=== PATIENT | female | born 1930 | race Caucasian/White ===

== ENCOUNTER 2016-08-18 16:22 | Emergency (ER) | payer OTHER ==
[2016-08-18 16:34] VITALS: TEMP 98.4
--- NOTE | 2016-08-18 17:19 | EDPHY ---
H & P Smoking Status: Never smoked Time Seen by Provider: 08/18/16 17:07 HPI/ROS: CHIEF COMPLAINT: Right wrist swelling and redness HISTORY OF PRESENT ILLNESS: 86-year-old female presents to the emergency department by private vehicle with concerns about swelling and redness to her right wrist. She denies any known trauma or injury. She states that about 1 week ago she noted some swelling and some redness in her right wrist and has since progressed proximally. She has no pain associated with this. She has no numbness or tingling. She denies pain in her elbow or shoulder. Denies fevers or chills. Denies chest pain or difficulty breathing. Denies rash elsewhere. The patient did have surgery on her right wrist when she was a child. REVIEW OF SYSTEMS: Constitutional: No fever, no chills. Eyes: No double or blurry vision. ENT: No sore throat. Respiratory: No cough, no shortness of breath. Cardiac: No chest pain. Gastrointestinal: No abdominal pain, vomiting or diarrhea. Genitourinary: No dysuria. Musculoskeletal: No neck or back pain. Skin: No rashes. Neurological: No headache. (Adrienne Headley) Past Medical/Surgical History: Hypothyroidism (Kayode,Adrienne M) Social History: and lives in [place] (Adrienne Headley) Physical Exam: General Appearance: Alert, no distress. Afebrile. Eyes: Pupils equal and round. Extraocular motions are all intact. ENT: Mouth: Mucous membranes moist. Respiratory: No wheezing, rhonchi, or rales, lungs are clear to auscultation. Cardiovascular: Regular rate and rhythm. Gastrointestinal: Abdomen is soft and nontender, no masses, no rebound or guarding, bowel sounds normal. Neurological: Alert and oriented x 3, cranial nerves II through XII grossly intact Skin: Redness noted to the medial aspect of the right wrist and forearm. Slightly warm to palpate. Nontender to palpate. Full range of motion of her right wrist. She has a well healed incision noted to the right wrist overlying distal radius on the volar side. She has full range of motion of her right upper extremity. No signs of septic joint. Warm and dry, no rashes. Musculoskeletal: Nontender to palpate along the cervical, thoracic or lumbar spine. Neck is supple. Extremities: Full range of motion and no peripheral edema. Psychiatric: Patient is oriented X 3, there is no agitation. (Adrienne Headley) Constitutional: Initial Vital Signs Temperature (C) 36.9 C 08/18/16 16:32 Heart Rate 83 08/18/16 16:32 Respiratory Rate 17 08/18/16 16:32 Blood Pressure 133/95 H 08/18/16 16:32 O2 Sat (%) 96 08/18/16 16:32 O2 Delivery Mode Room Air Allergies/Adverse Reactions: No Known Allergies Allergy (Verified 08/18/16 16:32) Home Medications: Medication Instructions Recorded Ascorbic Acid [Vitamin C 500 mg 500 mg PO DAILY 08/14/14 (*)] Aspirin [Aspirin 81mg (*)] 81 mg PO TUFR 08/14/14 Cholecalciferol Vit D3 [Vitamin D3 1,000 units PO DAILY 08/14/14 (*)] Levothyroxine [Synthroid 50 mcg 50 mcg PO DAILY06 08/14/14 (*)] Cephalexin [Keflex] 500 mg PO TID #21 cap 08/18/16 Medical Decision Making ED Course/Re-evaluation: 86-year-old female presents with redness to right forearm. She denies any known trauma or injury. It does not appear there is a rash. I spoke with Dr. Maite Gottlieb, secondary supervising physician, who also evaluated the patient and recommended starting the patient on Keflex. I doubt this patient has a DVT. She has no reported trauma. She has full range of motion of her right wrist without pain or difficulty. No evidence of septic joint. Given the history of redness that is spreading proximally, she will be started on antibiotics. I encouraged to follow up with her primary care provider on Sunday to recheck. The patient was comfortable with this plan. (Adrienne Headley) Differential Diagnosis: Including but not limited to cellulitis, thrombosis, superficial thrombophlebitis, skin irritation, septic arthritis (Adrienne Headley) Other Provider: I evaluated and participated in the management of the patient. My co-signature indicates that I have reviewed this chart and I agree with the findings and plan of care as documented. My personal H&P findings include: 86 year old female with erythema on right volar wrist and forearm. No warmth, swelling, or deformity. Patient denies trauma. Minimally uncomfortable to patient. Almost appears as ecchymosis but patient denies trauma and area has increased in size since yesterday. Will start Keflex and close follow up. (Maite Gottlieb) Departure - Departure Disposition: Home, Routine, Self-Care Clinical Impression: Cellulitis Qualifiers: Site of cellulitis: extremity Site of cellulitis of extremity: upper extremity Laterality: right Qualified Code(s): L03.113 - Cellulitis of right upper limb Condition: Good Instructions: Cellulitis (ED) Additional Instructions: Keflex 500 mg 3 times daily for 1 week to prevent infection. If your redness goes beyond the blue line that was marked on your skin, you should seek medical attention. Follow up with Erika Arzate or the on-call orthopedic hand surgeon , Dr. Roberto Kelly on Sunday if you do not notice improvement. Return sooner if he develops fever, associated pain, or if you feel worse in any way. Referrals: Erika Arzate MD [Primary Care Provider] - As per Instructions Prescriptions: Cephalexin [Keflex] 500 mg PO TID #21 cap
[2016-08-18 17:48] VITALS: BP 116/89; PULSE 69; RESP 18; O2SAT 94
== END 2016-08-18 17:47 | disposition home or self-care (01) ==
DX: L03.113 Cellulitis of right upper limb (principal); Z79.82 Long term (current) use of aspirin

== ENCOUNTER 2016-08-21 18:00 | Emergency (ER) | payer OTHER ==
--- NOTE | 2016-08-21 18:13 | EDPHY ---
H & P HPI/ROS: HPI CHIEF COMPLAINT: Head trauma, fall HISTORY OF PRESENT ILLNESS: This is a very pleasant 86-year-old female, she presents emergency room after she had a mechanical trip and fall. She states that she was walking on the sidewalk for her normal nightly walk she was using her typical walking pulse to ambulate she tells me that her feet got out in front of her too fast she began to walk too fast lost her balance fell forward with head strike. No LOC. She denies pain to her extremities specifically denies wrist pain hand pain back pain neck pain chest pain or shortness of breath. Denies palpitations. Denies syncope. Denies LOC. She did have head strike against the pavement of her forehead. there is bilateral forehead hematoma. Denies any other areas of injury. She tells me his tetanus shot is not up-to-date. Past Medical History:Thyroid disease Past Surgical History: no recent surgical history Social History: Lives independently, denies drugs alcohol tobacco products Family History: Noncontributory ROS REVIEW OF SYSTEMS: A comprehensive 10 point review of systems is otherwise negative aside from elements mentioned in the history of present illness. Exam Constitutional appears well nontoxic, triage nursing summary reviewed, vital signs reviewed, awake/alert. Eyes normal conjunctivae and sclera, EOMI, PERRLA. HENT head/neck: Bilateral forehead hematoma, abrasions present, no significant laceration, no neck pain no midline neck pain, no step-offs, no crepitus, moist mucus membranes, no epistaxis, neck supple/ no meningismus, no raccoon eyes. Respiratory clear to auscultation bilaterally, normal breath sounds, no respiratory distress, no wheezing. Cardiovascular rate normal, regular rhythm, no murmur, no edema, distal pulses normal. Gastrointestinal soft, non-tender, no rebound, no guarding, normal bowel sounds, no distension, no pulsatile mass. Genitourinary no CVA tenderness. Musculoskeletal no midline vertebral tenderness, full range of motion, no calf swelling, no tenderness of extremities, no meningismus, good pulses, neurovascularly intact. Skin pink, warm, & dry, no rash, skin atraumatic. Neurologic awake, alert and oriented x 3, AAOx3, moves all 4 extremities equally, motor intact, sensory intact, CN II-XII intact, normal cerebellar, normal vision, normal speech. Psychiatric normal mood/affect. Heme/Lymph/Immune no lymphadenopathy. Differential Diagnosis: includes but is not limited to in a particular order mechanical trip and fall, forehead hematoma, abrasions, need for tetanus shot Medical Decision Making: will update patient's tetanus. We will perform CT scan head without contrast for trauma. Re-evaluation: CT scan of the head without IV contrast for trauma. The results of the study are negative for acute traumatic injury. The study was read by Dr. Perla. I viewed the images myself on the PACS system. 191: Patient CT scan head shows negative for anything acute for trauma. She ambulated well throughout the emergency room. She feels well he is agreeable for discharge. I have answered all her questions. Her tetanus shot has been updated. Wounds clean. She does understand strict return precautions return emergency room she develops any worsening symptoms includes vomiting or severe headache. Source: Patient, EMS - Personal History Tetanus Vaccine Date: unsure - Medical/Surgical History Hx Asthma: No Hx Chronic Respiratory Disease: No Hx Diabetes: No Hx Cardiac Disease: No Hx Renal Disease: No Hx Cirrhosis: No Hx Alcoholism: No Hx HIV/AIDS: No Hx Splenectomy or Spleen Trauma: No Other PMH: thyroid - Social History Smoking Status: Never smoked Constitutional: Initial Vital Signs Temperature (C) 36.6 C 08/21/16 18:00 Heart Rate 91 08/21/16 18:00 Respiratory Rate 16 08/21/16 18:00 Blood Pressure 132/71 H 08/21/16 18:00 O2 Sat (%) 92 08/21/16 18:00 O2 Delivery Mode Room Air Allergies/Adverse Reactions: No Known Allergies Allergy (Verified 08/18/16 16:32) Home Medications: Medication Instructions Recorded Ascorbic Acid [Vitamin C 500 mg 500 mg PO DAILY 08/14/14 (*)] Aspirin [Aspirin 81mg (*)] 81 mg PO TUFR 08/14/14 Cholecalciferol Vit D3 [Vitamin D3 1,000 units PO DAILY 08/14/14 (*)] Levothyroxine [Synthroid 50 mcg 50 mcg PO DAILY06 08/14/14 (*)] Cephalexin [Keflex] 500 mg PO TID #21 cap 08/18/16 Departure - Departure Disposition: Home, Routine, Self-Care Clinical Impression: Head injury Qualifiers: Encounter type: initial encounter Qualified Code(s): S09.90XA - Unspecified injury of head, initial encounter Traumatic hematoma of forehead Qualifiers: Encounter type: initial encounter Qualified Code(s): S00.83XA - Contusion of other part of head, initial encounter Condition: Good Instructions: Concussion (ED), Head Injury (ED), Contusion in Adults (ED), Hematoma (ED), Tetanus (ED) Additional Instructions: 1. Please return emergency room if he develops any worsening symptoms questions or concerns includes the severe headache, vomiting or you do not feel well. Referrals: Patient,NotPresent [Unknown] - As per Instructions
[2016-08-21 18:15] VITALS: RESP 16; TEMP 97.9
[2016-08-21] MEDS ORDERED: TDAP ADULT 0.5 ML INJ (BOOSTRIX) IM ONE (18:20)
[2016-08-21 19:34] VITALS: BP 125/74; PULSE 71; O2SAT 94
== END 2016-08-21 19:35 | disposition home or self-care (01) ==
LOC: EDUNIT#
DX: S00.83XA Contusion of other part of head, initial encounter (principal); Z23 Encounter for immunization; Z79.82 Long term (current) use of aspirin; W01.0XXA Fall on same level from slipping, tripping and stumbling without subsequent striking against object, initial encounter; Y92.480 Sidewalk as the place of occurrence of the external cause; Y99.8 Other external cause status; Y93.01 Activity, walking, marching and hiking

== ENCOUNTER → 2016-11-15 | Outpatient (CLI) | payer OTHER | LOC: BMCIMAGING 08:45 | PROVIDERS: ATTEND Psychiatry & Neurology Neurology | DX: Z13.9 Encounter for screening, unspecified (principal); R09.89 Other specified symptoms and signs involving the circulatory and respiratory systems ==

== ENCOUNTER → 2016-11-18 | Outpatient (CLI) | payer OTHER ==
[~2016-11-18] MED LIST: GADOBUTROL 10 ML VIAL IVP ONE
[2016-11-18 13:56] LABS: CREATININE 0.7 mg/dL (0.6-1.0); GLOMERULAR FILTRATION RATE > 60
== END ==
LOC: FIMAGING 12:48
PROVIDERS: ATTEND Psychiatry & Neurology Neurology
DX: R26.81 Unsteadiness on feet (principal); R41.3 Other amnesia; Z85.3 Personal history of malignant neoplasm of breast; M50.30 Other cervical disc degeneration, unspecified cervical region; M48.02 Spinal stenosis, cervical region; R93.0 Abnormal findings on diagnostic imaging of skull and head, not elsewhere classified
CPT/HCPCS: 70553; 72141; A9585

== ENCOUNTER 2017-01-12 17:50 | Inpatient (IN) | payer OTHER ==
--- NOTE | 2017-01-12 18:54 | CPEKG ---
Heart Rate: 96 RR Interval: 625 P-R Interval: 164 QRSD Interval: 76 QT Interval: 360 QTC Interval: 455 P [place]: 30 QRS [place]: -18 T Wave [place]: 19 EKG Severity - ABNORMAL ECG - EKG Impression: SINUS RHYTHM EKG Impression: PROBABLE LEFT ATRIAL ABNORMALITY EKG Impression: BORDERLINE LEFT AXIS DEVIATION EKG Impression: ABNRM R PROG, CONSIDER ASMI OR LEAD PLACEMENT Electronically Signed By: Maite Gottlieb 12-Jan-2017 21:35:38
[2017-01-12 19:00] LABS: % IMMATURE GRANULYOCYTES 0.5 % (0.0-1.1); ABSOLUTE IMMATURE GRANULOCYTES 0.03 10^3/uL (0.00-0.10); ADD DIFF? NO; ADD MORPH? NO; ADD SCAN? NO; ATYPICAL LYMPHOCYTE FLAG 10 (0-99); FRAGMENT RBC FLAG 0 (0-99); HEMATOCRIT 35.6 % (38.0-47.0); HEMOGLOBIN 12.3 g/dL (12.6-16.3); LEFT SHIFT FLG 0 (0-99); LIPEMIA HEMOLYSIS FLAG 90 (0-99); MEAN CELL HEMOGLOBIN 33.4 pg (27.9-34.1); MEAN CELL HEMOGLOBIN CONCENTR. 34.6 g/dL (32.4-36.7); MEAN CELL VOLUME 96.7 fL (81.5-99.8); MEAN PLATELET VOLUME 9.1 fL (8.7-11.7); PLATELET CLUMPS FLAG 0 (0-99); PLATELET COUNT 251 10^3/uL (150-400); RED BLOOD CELL COUNT 3.68 10^6/uL (4.18-5.33); RED CELL DISTRIBUTION WIDTH 13.5 % (11.5-15.2)
[2017-01-12 19:12] LABS: ANION GAP 10 mEq/L (8-16); CALCIUM 9.9 mg/dL (8.5-10.4); CARBON DIOXIDE 23 mEq/l (22-31); CHLORIDE 98 mEq/L (97-110); CREATININE 0.8 mg/dL (0.6-1.0); GLOMERULAR FILTRATION RATE > 60; GLUCOSE 107 mg/dL (70-100); SODIUM 131 mEq/L (134-144)
[2017-01-12 19:21] LABS: TROPONIN I 0.017 ng/mL (0.000-0.034)
[2017-01-12 19:53] LABS: COLOR YELLOW; LEUKOCYTE ESTERASE,URINE NEGATIVE (NEGATIVE); NITRITE,URINE NEGATIVE (NEGATIVE)
[2017-01-12 19:54] LABS: MUCUS TRACE /lpf (NONE-1+)
[2017-01-12 19:57] LABS: WBC,URINE NONE SEEN /hpf (0-3)
--- NOTE | 2017-01-12 20:47 | EDPHY ---
H & P Stated Complaint: mechanical fall, denies LOC/Pain/Trauma, c/o bilateral knee wks today Time Seen by Provider: 01/12/17 17:50 HPI/ROS: CHIEF COMPLAINT: Knees gave out HISTORY OF PRESENT ILLNESS: This is an 86-year-old female presents emergency department after a fall. Per the paramedics and the patient she was walking approximately 2-3 blocks from her home. Paramedics reported mechanical fall, however the patient states that her knee simply gave out and she fell. She denies chest pain, palpitations, lightheadedness, dizziness, shortness of breath , syncope, or head trauma. She was unable to get up stating that her knees felt too weak. Patient does report that her knees have felt weak today. This is the 1st time she has fallen. Patient denies fevers or chills, vomiting, diarrhea, urinary complaints, headache, lightheadedness. REVIEW OF SYSTEMS: Aside from elements discussed in the HPI, a comprehensive 10-point review of systems was reviewed and is negative. Of note, the patient has a Zoll monitor in place on her chest. She tells me that was placed at the request of her primary care physician, Dr. Arzate, however she cannot tell me why. PAST MEDICAL HISTORY: Hypothyroidism SOCIAL HISTORY: Patient lives alone at [facility]. She has a daughter who is a physician in [place]. VITAL SIGNS Reviewed by me. GENERAL: Pleasant, bright, conversant elderly female. No distress. Denies pain. States her knees feel weak. HEENT: Atraumatic. Eyes: No icterus, no injection. Mouth: moist mucous membranes. No erythema or lesions. Neck: supple with no adenopathy. No tenderness to palpation. LUNGS: Clear to auscultation bilaterally, no wheezes, rhonchi or rales. CARDIAC: Regular rate and rhythm, no rubs, murmurs or gallops. ABDOMEN: Soft, nontender, nondistended, bowel sounds normal. BACK: No CVA tenderness. EXTREMITIES: faint abrasion on the right knee. No bony tenderness over the knees. No effusions. Full range of motion at the knees. Normal extensor mechanism. NEURO: Alert and oriented, grossly nonfocal. SKIN: Warm and dry, no rash. PSYCHIATRIC: Normal mentation, no agitation. - Personal History Current Tetanus Diphtheria and Acellular Pertussis (TDAP): Yes Tetanus Vaccine Date: unsure - Medical/Surgical History Hx Asthma: No Hx Chronic Respiratory Disease: No Hx Diabetes: No Hx Cardiac Disease: No Hx Renal Disease: No Hx Cirrhosis: No Hx Alcoholism: No Hx HIV/AIDS: No Hx Splenectomy or Spleen Trauma: No Other PMH: thyroid - Social History Smoking Status: Never smoked Constitutional: Initial Vital Signs Temperature (C) 36.8 C 01/12/17 17:58 Heart Rate 104 H 01/12/17 17:58 Respiratory Rate 16 01/12/17 17:58 Blood Pressure 150/88 H 01/12/17 17:58 O2 Sat (%) 93 01/12/17 17:58 O2 Delivery Mode Room Air Allergies/Adverse Reactions: No Known Allergies Allergy (Verified 01/12/17 21:21) Home Medications: Medication Instructions Recorded Levothyroxine [Synthroid 50 mcg 50 mcg PO DAILY06 08/14/14 (*)] Herbals/Supplements -Info Only 1 ea PO DAILY 01/12/17 Medical Decision Making - Diagnostics EKG Interpretation: 12-LEAD EKG: Please see the full report in [facility]. My interpretation: Sinus rhythm Imaging Results: Imaging Impressions Knee X-Ray 01/12/17 18:23 Impression: Normal bilateral knee series. Knee X-Ray 01/12/17 18:23 Impression: Normal bilateral knee series. ED Course/Re-evaluation: 86-year-old female presents after a fall. Patient tells me that her knees just gave out on her. Evaluation in the emergency department includes CBC, chemistries, troponin which were all largely unremarkable. Urinalysis demonstrates no signs of infection. I did get the patient up and washed her ambulate. She can move very slowly and very cautiously using her to walking/hiking sticks. She states this is normally not away she walks. She feels very anxious about walking and feels that her knees are going to give out. Patient's course discussed with Dr. Giovanna Hernandez. She will be admitted to the hospital for further observation. Patient may need physical therapy evaluation. It is also unclear to me why she has a Zoll monitor and the possibility of a cardiac event could be raised. Differential Diagnosis: Differential diagnoses for the patient's symptom complex was considered including but not limited to mechanical fall, syncope, arrhythmia, electrolyte abnormalities, arthritis, deconditioning, occult infection, urinary tract infection. - Data Points Laboratory Results: Laboratory Results 01/12/17 18:45 01/12/17 18:45 01/12/17 01/12/17 01/12/17 19:17 18:45 18:45 WBC 6.38 10^3/uL 10^3/uL (3.80-9.50) RBC 3.68 10^6/uL L 10^6/uL (4.18-5.33) Hgb 12.3 g/dL L g/dL (12.6-16.3) Hct 35.6 % L % (38.0-47.0) MCV 96.7 fL fL (81.5-99.8) MCH 33.4 pg pg (27.9-34.1) MCHC 34.6 g/dL g/dL (32.4-36.7) RDW 13.5 % % (11.5-15.2) Plt Count 251 10^3/uL 10^3/uL (150-400) MPV 9.1 fL fL (8.7-11.7) Neut % (Auto) 82.2 % H % (39.3-74.2) Lymph % (Auto) 10.0 % L % (15.0-45.0) [place] % (Auto) 6.0 % % (4.5-13.0) Eos % (Auto) 0.5 % L % (0.6-7.6) Baso % (Auto) 0.8 % % (0.3-1.7) Nucleat RBC Rel Count 0.0 % % (0.0-0.2) Absolute Neuts (auto) 5.25 10^3/uL 10^3/uL (1.70-6.50) Absolute Lymphs (auto) 0.64 10^3/uL L 10^3/uL (1.00-3.00) Absolute Monos (auto) 0.38 10^3/uL 10^3/uL (0.30-0.80) Absolute Eos (auto) 0.03 10^3/uL 10^3/uL (0.03-0.40) Absolute Basos (auto) 0.05 10^3/uL 10^3/uL (0.02-0.10) Absolute Nucleated RBC 0.00 10^3/uL 10^3/uL (0-0.01) Immature Gran % 0.5 % % (0.0-1.1) Immature Gran # 0.03 10^3/uL 10^3/uL (0.00-0.10) Sodium 131 mEq/L L mEq/L (134-144) Potassium 4.0 mEq/L mEq/L (3.5-5.2) Chloride 98 mEq/L mEq/L (97-110) Carbon Dioxide 23 mEq/l mEq/l (22-31) Anion Gap 10 mEq/L mEq/L (8-16) BUN 24 mg/dL H mg/dL (7-23) Creatinine 0.8 mg/dL mg/dL (0.6-1.0) Estimated GFR > 60 Glucose 107 mg/dL H mg/dL (70-100) Calcium 9.9 mg/dL mg/dL (8.5-10.4) Troponin I 0.017 ng/mL ng/mL (0.000-0.034) Urine Color YELLOW Urine Appearance CLEAR Urine pH 6.0 (5.0-7.5) Ur Specific [place] 1.004 (1.002-1.030) Urine Protein NEGATIVE (NEGATIVE) Urine Ketones NEGATIVE (NEGATIVE) Urine Blood NEGATIVE (NEGATIVE) Urine Nitrate NEGATIVE (NEGATIVE) Urine Bilirubin NEGATIVE (NEGATIVE) Urine Urobilinogen NEGATIVE EU EU (0.2-1.0) Ur Leukocyte Esterase NEGATIVE (NEGATIVE) Urine RBC 1-3 /hpf /hpf (0-3) Urine WBC NONE SEEN /hpf /hpf (0-3) Ur Epithelial Cells NONE SEEN /lpf /lpf (NONE-1+) Urine Mucus TRACE /lpf /lpf (NONE-1+) Urine Glucose NEGATIVE (NEGATIVE) Medications Given: Sodium Chloride (Ns) 500 mls @ 250 mls/hr IV EDNOW ONE PRN Reason: Protocol Stop: 01/12/17 23:07 Last Admin: 01/12/17 21:13 Dose: 500 mls Discontinued Medications Acetaminophen (Tylenol) 650 mg PO EDNOW ONE Stop: 01/12/17 20:53 Last Admin: 01/12/17 21:07 Dose: Not Given Departure - Departure Disposition: [facility] Clinical Impression: Unable to ambulate Condition: Fair
[2017-01-12] MEDS ORDERED: ACETAMINOPHEN 325 MG TAB PO ONE (20:52)
[2017-01-12] MEDS ORDERED: NS 500 ML IV ONE (21:08)
[2017-01-12] MEDS ORDERED: ACETAMINOPHEN 325 MG TAB PO PRN (22:21)
[2017-01-12] MEDS ORDERED: ONDANSETRON 4 MG/2 ML VIAL IVP PRN (22:21)
[2017-01-12] MEDS ORDERED: ONDANSETRON DISINTEGRATING 4 MG TAB PO PRN (22:21)
--- NOTE | 2017-01-12 22:27 | PDGENHP ---
History and Physical - Chief Complaint Fall - History of Present Illness 86 yo F with hypothyroid presents after fall. She states she was going for a walk today when her knees gave out. She denies loss of consciousness, chest pain , SOB, etc. She could not get up on her own but people from her facility were able to help her. She arrived to ED via EMS as a result. She lives at an independent living facility where it does not seem she gets much help. Although the patient is fairly oriented and has an appropriate fund of knowledge, it seems she may have at least mild dementia. Reviewing her records I see recent brain and C-spine MRI's, which she does not recall why these were done. Additionally, she has a Zio patch (heart monitor) on today; she also does not recall why this was placed. Currently she is asymptomatic. History Information - Allergies/Home Medication List Allergies/Adverse Reactions: No Known Allergies Allergy (Verified 01/12/17 21:21) Home Medications: Levothyroxine [Synthroid 50 mcg (*)] 50 mcg PO DAILY06 08/14/14 [Last Taken ] Herbals/Supplements -Info Only 1 ea PO DAILY 01/12/17 [Last Taken 01/12/17] I have personally reviewed and updated: family history, medical history - Past Medical History Additional medical history: Hypothyroid - Family History Additional family history: Asked, does not recall - Social History Smoking Status: Never smoked Review of Systems Review of Systems: ROS: 10pt was reviewed & negative except for what was stated in HPI & below Physical Exam Physical Exam: Temp Pulse Resp BP Pulse Ox 36.8 C 77 16 151/86 H 96 01/12/17 17:58 01/12/17 21:45 01/12/17 21:45 01/12/17 21:45 01/12/17 21:45 Constitutional: no apparent distress, appears nourished Eyes: PERRL, EOMI Ears, Nose, Mouth, Throat: moist mucous membranes, no oral mucosal ulcers Cardiovascular: regular rate and rhythym, no murmur, rub, or gallop Respiratory: no respiratory distress, clear to auscultation Gastrointestinal: normoactive bowel sounds, soft, non-tender abdomen Skin: warm, normal color Musculoskeletal: full muscle strength, no muscle tenderness Neurologic: AAOx3, CN II-XII Intact Psychiatric: interacting appropriately, not anxious Lab Data & Imaging Review 01/12/17 18:45 01/12/17 18:45 WBC 6.38 10^3/uL (3.80-9.50) 01/12/17 18:45 RBC 3.68 10^6/uL (4.18-5.33) L 01/12/17 18:45 Hgb 12.3 g/dL (12.6-16.3) L 01/12/17 18:45 Hct 35.6 % (38.0-47.0) L 01/12/17 18:45 MCV 96.7 fL (81.5-99.8) 01/12/17 18:45 MCH 33.4 pg (27.9-34.1) 01/12/17 18:45 MCHC 34.6 g/dL (32.4-36.7) 01/12/17 18:45 RDW 13.5 % (11.5-15.2) 01/12/17 18:45 Plt Count 251 10^3/uL (150-400) 01/12/17 18:45 MPV 9.1 fL (8.7-11.7) 01/12/17 18:45 Neut % (Auto) 82.2 % (39.3-74.2) H 01/12/17 18:45 Lymph % (Auto) 10.0 % (15.0-45.0) L 01/12/17 18:45 [place] % (Auto) 6.0 % (4.5-13.0) 01/12/17 18:45 Eos % (Auto) 0.5 % (0.6-7.6) L 01/12/17 18:45 Baso % (Auto) 0.8 % (0.3-1.7) 01/12/17 18:45 Nucleat RBC Rel Count 0.0 % (0.0-0.2) 01/12/17 18:45 Absolute Neuts (auto) 5.25 10^3/uL (1.70-6.50) 01/12/17 18:45 Absolute Lymphs (auto) 0.64 10^3/uL (1.00-3.00) L 01/12/17 18:45 Absolute Monos (auto) 0.38 10^3/uL (0.30-0.80) 01/12/17 18:45 Absolute Eos (auto) 0.03 10^3/uL (0.03-0.40) 01/12/17 18:45 Absolute Basos (auto) 0.05 10^3/uL (0.02-0.10) 01/12/17 18:45 Absolute Nucleated RBC 0.00 10^3/uL (0-0.01) 01/12/17 18:45 Immature Gran % 0.5 % (0.0-1.1) 01/12/17 18:45 Immature Gran # 0.03 10^3/uL (0.00-0.10) 01/12/17 18:45 Sodium 131 mEq/L (134-144) L 01/12/17 18:45 Potassium 4.0 mEq/L (3.5-5.2) 01/12/17 18:45 Chloride 98 mEq/L (97-110) 01/12/17 18:45 Carbon Dioxide 23 mEq/l (22-31) 01/12/17 18:45 Anion Gap 10 mEq/L (8-16) 01/12/17 18:45 BUN 24 mg/dL (7-23) H 01/12/17 18:45 Creatinine 0.8 mg/dL (0.6-1.0) 01/12/17 18:45 Estimated GFR > 60 01/12/17 18:45 Glucose 107 mg/dL (70-100) H 01/12/17 18:45 Calcium 9.9 mg/dL (8.5-10.4) 01/12/17 18:45 Troponin I 0.017 ng/mL (0.000-0.034) 01/12/17 18:45 Urine Color YELLOW 01/12/17 19:17 Urine Appearance CLEAR 01/12/17 19:17 Urine pH 6.0 (5.0-7.5) 01/12/17 19:17 Ur Specific [place] 1.004 (1.002-1.030) 01/12/17 19:17 Urine Protein NEGATIVE (NEGATIVE) 01/12/17 19:17 Urine Ketones NEGATIVE (NEGATIVE) 01/12/17 19:17 Urine Blood NEGATIVE (NEGATIVE) 01/12/17 19:17 Urine Nitrate NEGATIVE (NEGATIVE) 01/12/17 19:17 Urine Bilirubin NEGATIVE (NEGATIVE) 01/12/17 19:17 Urine Urobilinogen NEGATIVE EU (0.2-1.0) 01/12/17 19:17 Ur Leukocyte Esterase NEGATIVE (NEGATIVE) 01/12/17 19:17 Urine RBC 1-3 /hpf (0-3) 01/12/17 19:17 Urine WBC NONE SEEN /hpf (0-3) 01/12/17 19:17 Ur Epithelial Cells NONE SEEN /lpf (NONE-1+) 01/12/17 19:17 Urine Mucus TRACE /lpf (NONE-1+) 01/12/17 19:17 Urine Glucose NEGATIVE (NEGATIVE) 01/12/17 19:17 Imaging Review: B/L Knee Xrays WNL. Visualized and Interpreted EKG results: Yes EKG Interpretation: Positive for: normal sinsus rhythm Assessment & Plan Assessment: 86 yo F presents after fall likely as a result of sub-acute functional decline. Plan: 1. Fall - No evidence of LOC, seizures, ACS, etc. It seems fall was minor and more due to weakness and deconditioning than acute medical condition. I suspect patient's history is not entirely reliable due to mild/moderate dementia, and she is likely doing worse at home than she lets on. Neurologic exam WNL on admission and patient asymptomatic. No significant trauma occurred from fall. 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 - Will monitor on telemetry overnight noting Zio patch in place for unclear reasons - Would obtain PCP records to obtain collateral and other recent work-up - TSH, B12, Vit D all WNL on November lab work - PT/OT/CM consults to assess function and assure correct placement on discharge , currently in independent living 2. Hyponatremia - Mild, will recheck BMP in AM after 500 mL NS 3. Hypothyroid - On LTX as outpatient, TSH WNL in November Diet - Regular Code - Full per discussion with patient Ppx - LMWH, low dose Dispo - Admit to observation status
[2017-01-13 05:20] LABS: ANION GAP 5 mEq/L (8-16); CARBON DIOXIDE 25 mEq/l (22-31); CHLORIDE 103 mEq/L (97-110); CREATININE 0.7 mg/dL (0.6-1.0); GLOMERULAR FILTRATION RATE > 60; GLUCOSE 85 mg/dL (70-100); POTASSIUM 3.6 mEq/L (3.5-5.2); SODIUM 133 mEq/L (134-144)
[2017-01-13 05:21] LABS: % IMMATURE GRANULYOCYTES 0.2 % (0.0-1.1); ABSOLUTE IMMATURE GRANULOCYTES 0.01 10^3/uL (0.00-0.10); ADD DIFF? NO; ADD MORPH? NO; ADD SCAN? NO; ATYPICAL LYMPHOCYTE FLAG 30 (0-99); FRAGMENT RBC FLAG 0 (0-99); HEMATOCRIT 30.7 % (38.0-47.0); HEMOGLOBIN 10.4 g/dL (12.6-16.3); LEFT SHIFT FLG 0 (0-99); LIPEMIA HEMOLYSIS FLAG 90 (0-99); MEAN CELL HEMOGLOBIN 33.1 pg (27.9-34.1); MEAN CELL HEMOGLOBIN CONCENTR. 33.9 g/dL (32.4-36.7); MEAN CELL VOLUME 97.8 fL (81.5-99.8); MEAN PLATELET VOLUME 9.5 fL (8.7-11.7); PLATELET CLUMPS FLAG 0 (0-99); PLATELET COUNT 219 10^3/uL (150-400); RED BLOOD CELL COUNT 3.14 10^6/uL (4.18-5.33); RED CELL DISTRIBUTION WIDTH 13.7 % (11.5-15.2)
[2017-01-13] MEDS: ENOXAPARIN 30 MG/0.3 ML SYR SC SCH (10:19)
--- NOTE | 2017-01-13 13:33 | HOSPPROG ---
Hospitalist Progress Note Assessment/Plan: 86 yo F PMH hypoT presents after fall likely as a result of sub-acute functional decline. This is my first day caring for pt. Knee Xrays reviewed. ECG personally interpreted reveals SR. #. Fall - No evidence of LOC, seizures, ACS, etc. minor fall and more due to weakness and deconditioning than acute medical condition. suspect patient's history is not entirely reliable due to mild/moderate dementia, and she is likely doing worse at home than she lets on. Neurologic exam WNL on admission and patient asymptomatic. No significant trauma occurred from fall. 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 Will monitor on telemetry overnight noting Zio patch in place for unclear reasons Would obtain PCP records to obtain collateral and other recent work-up TSH, B12, Vit D all WNL on November lab work PT/OT/CM consults to assess function and assure correct placement on discharge, currently in independent living #. Hyponatremia - Mild, will recheck BMP in AM after 500 mL NS #. Hypothyroid - On LT4 as outpatient, TSH WNL in November #. Diet - Regular #. Code - Full per discussion with patient #. Ppx - LMWH, low dose #. Dispo - unclear as pt is still undergoing evaluations will admit to inpt OT recommending SNF rehab Subjective: Denies knee pain, cp, lightheadedness. Objective: Vital Signs Temp Pulse Resp BP Pulse Ox 97.3 F 81 14 91/53 L 94 01/13/17 11:30 01/13/17 11:30 01/13/17 11:30 01/13/17 11:30 01/13/17 11:30 Laboratory Results 01/13/17 04:45 01/13/17 04:45 01/12/17 01/13/17 01/14/17 05:59 05:59 05:59 Intake Total 560 Output Total 200 200 Balance 360 -200 - Physical Exam Constitutional: no apparent distress, appears nourished Eyes: PERRL Ears, Nose, Mouth, Throat: moist mucous membranes Cardiovascular: regular rate and rhythym, no murmur, rub, or gallop Respiratory: no respiratory distress, no rales or rhonchi Gastrointestinal: normoactive bowel sounds Skin: warm, normal color Psychiatric: interacting appropriately, not anxious ICD10 Worksheet Patient Problems: Problems Problem Status Onset Hyponatremia Acute Cellulitis Acute Unable to ambulate Acute
--- NOTE | 2017-01-13 15:48 | ASMTCMCOM ---
CM Note CM Note Notes: Pt admitted after fall while walking. Pt lives alone at [facility]. No PT eval yet but OT is recommending HC vs SNF. expressed concern that pt has mild to moderate dementia and is probably doing worse at home than she lets on. C/M to follow for DC plan. Date Signed: 01/13/2017 03:48 PM Electronically Signed By:Breonna Rausch LCSW
[2017-01-14] MEDS ORDERED: LEVOTHYROXINE 50 MCG TAB PO SCH (06:00)
[2017-01-14 07:56] VITALS: TEMP 101.5
[2017-01-14] MEDS ORDERED: Herbals/Supplements -Info Only PO SCH (09:00)
[2017-01-14] MEDS: ENOXAPARIN 30 MG/0.3 ML SYR SC SCH (09:20)
--- NOTE | 2017-01-14 11:27 | HOSPPROG ---
Hospitalist Progress Note Assessment/Plan: 86 yo F PMH hypoT presents after fall likely as a result of sub-acute functional decline. #. Fall - No evidence of LOC, seizures, ACS, etc. minor fall and more due to weakness and deconditioning than acute medical condition. suspect patient's history is not entirely reliable due to mild/moderate dementia, and she is likely doing worse at home than she lets on. Neurologic exam WNL on admission and patient asymptomatic. No significant trauma occurred from fall. 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 D/C telemetry as it as been fairly unremarkable/ continue Zio patch TSH, B12, Vit D all WNL on November lab work PT/OT/CM consults to assess function and seeking placement for rehab #. Hyponatremia - Mild and improved #. Hypothyroid - On LT4 as outpatient, TSH WNL in November #. Diet - Regular #. Code - Full per discussion with patient #. Ppx - LMWH, low dose #. Dispo - await placement for SNF rehab Subjective: No complaints. Objective: Vital Signs Temp Pulse Resp BP Pulse Ox 101.5 F H 83 15 129/73 H 93 01/14/17 07:54 01/14/17 07:54 01/14/17 07:54 01/14/17 07:54 01/14/17 07:54 01/13/17 01/14/17 01/15/17 05:59 05:59 05:59 Intake Total 750 Output Total 400 500 Balance 350 -500 - Physical Exam Constitutional: no apparent distress, appears nourished Cardiovascular: regular rate and rhythym, systolic murmur Respiratory: no respiratory distress, no rales or rhonchi Gastrointestinal: normoactive bowel sounds, soft, non-tender abdomen Skin: warm, normal color ICD10 Worksheet Patient Problems: Problems Problem Status Onset Unable to ambulate Acute Cellulitis Acute Hyponatremia Acute
[2017-01-14 11:58] VITALS: BP 122/73; PULSE 79; RESP 18; O2SAT 94
--- NOTE | 2017-01-14 14:01 | PDIAF ---
- Diagnosis Code Status: Full Code - Medication Management Discharge Medications: Medications to Continue on Transfer Levothyroxine [Synthroid 50 mcg (*)] 50 mcg PO DAILY06 08/14/14 [Last Taken ] Herbals/Supplements -Info Only 1 ea PO DAILY 01/12/17 [Last Taken 01/12/17] Acetaminophen [Tylenol 325mg (*)] 650 mg PO Q4HRS PRN tab 01/14/17 [Last Taken Unknown] Discharge Medications: Refer to the Discharge Home Medication list for PRN reason. - Orders Services needed: Registered Nurse, Certified Machine Cutter, Physical Therapy, Occupational Therapy Diet Recommendation: no restrictions on diet - Follow Up Care Current Providers and Referrals: Erika Arzate MD [Primary Care Provider] - follow up in 1 week
--- NOTE | 2017-01-14 14:02 | ASMTCMCOM ---
CM Note CM Note Notes: Patient has been cleared for discharge. Contacted [facility] to see if [facility] could take her today under her [facility] membership. They do have a bed and can admit. Date Signed: 01/14/2017 02:01 PM Electronically Signed By:Sheryl Schmidt LCSW
--- NOTE | 2017-01-14 14:31 | ASMTCMCOM ---
CM Note CM Note Notes: [facility] reported that their [employer] was down and needed patient info sent by Fax. Patient will need W/C van set up. Contacted [facility] and left message. Date Signed: 01/14/2017 02:30 PM Electronically Signed By:Sheryl Schmidt LCSW
--- NOTE | 2017-01-14 16:04 | GDS ---
[f rep st] DISCHARGE SUMMARY DISCHARGE DIAGNOSES: 1. Fall, likely secondary to deconditioning. 2. Hyponatremia, improved on day of discharge. 3. Hypothyroidism. PROCEDURES: Bilateral knee x-rays. BRIEF HISTORY: Please see dictated H and P by Juan Carlos Page for complete details. In brief, the patient is an 86-year-old female, brought over from [facility]. She had noted a fall, as she felt "her knees gave out." There was no evidence of fracture on her x-rays. PT and OT have evaluated the patient and recommends SNF rehab due to ongoing weakness and deconditionin g. RESULTS PENDING: None. DIET: Per previous. ACTIVITY: Per PT and OT. DISCHARGE MEDICATIONS: Please see med reconciliation. FOLLOWUP INSTRUCTIONS: Follow with PCP in 1-2 weeks time. Please note that greater than 30 minutes was spent on discharge and coordination of care. /[id number]/MODL
--- NOTE | 2017-01-15 14:30 | ASDISCHSUM ---
Discharge Information Plan Status:SNF Medically Cleared to Leave:01/14/2017 Discharge Date:01/14/2017 03:46 PM CM D/C Disposition:Half-Way Facility ADT D/C Disposition:Half-Way Facility Projected Discharge Date:01/14/2017 03:00 PM Transportation at D/C:Wheelchair Van Discharge Delay Reason: Follow-Up Date:01/14/2017 03:00 PM Discharge Slot: Final Diagnosis:Fall- functional decline Placement Information Referral Type:*Longterm/SNF Referral ID:[id number] Provider Name: Address 1: Phone Number: Address 2: Fax Number: City: Selection Factors: State: Patient Contact Information Contact Name:ISELA Relationship:Daughter Address:[address] [place] Phone: State/[facility] Code:[place] [address] Email: Financial Information Financial Class: Primary Plan Desc:MEDICARE INPATIENT Primary Plan Number:[id number] Secondary Plan Desc:BHAVIK PPO UNIV COLO Secondary Plan Number:[id number] Assessment Information [facility] CM Progress Note CM Note CM Note Notes: Pt admitted after fall while walking. Pt lives alone at [facility]. No PT eval yet but OT is recommending HC vs SNF. expressed concern that pt has mild to moderate dementia and is probably doing worse at home than she lets on. C/M to follow for DC plan. Date Signed: 01/13/2017 03:48 PM Electronically Signed By:Breonna Rausch LCSW [facility] CM Progress Note CM Note CM Note Notes: Patient has been cleared for discharge. Contacted [facility] to see if [facility] could take her today under her [facility]. They do have a bed and can admit. Date Signed: 01/14/2017 02:01 PM Electronically Signed By:Sheryl Schmidt LCSW [facility] CM Progress Note CM Note CM Note Notes: [facility] reported that their [employer] was down and needed patient info sent by Fax. Patient will need W/C van set up. Contacted [facility] and left message. Date Signed: 01/14/2017 02:30 PM Electronically Signed By:Sheryl Schmidt LCSW Intervention Information Intervention Type:*Occurence 72 Date of Service:01/12/2017 10:21 PM Patient Type:Inpatient Staff Member:RIKI Florian Shelly Hours:0.25 Discipline: Severity:1 (0-1 Hours) Comment:Occ 72 for 01/12/2017 as patient discha rged 01/14/2017 (< 2 MN LOS after patient admission status changedc from observation to inpatient)..
== END 2017-01-14 15:46 | DRG 948 ==
LOC: EDUNIT# → F3N 23:55 → OBSVTOIN 01-13 13:35
PROVIDERS: ADMIT Internal Medicine; ATTEND Internal Medicine
DX: R53.1 Weakness (principal); Z91.81 History of falling; E87.1 Hypo-osmolality and hyponatremia; E03.9 Hypothyroidism, unspecified
CPT/HCPCS: 97116-GP; 97162-GP; 97165-GO; 97535-GO; G0378; G8978-GP-CJ; G8979-GP-CI; G8987-GO-CI; G8988-GO-CI; G8989-GO-CI; J1650

== ENCOUNTER → 2017-03-29 | Outpatient (CLI) | payer OTHER | LOC: BMCIMAGING 13:52 | PROVIDERS: ATTEND Internal Medicine | DX: Z12.31 Encounter for screening mammogram for malignant neoplasm of breast (principal); Z85.3 Personal history of malignant neoplasm of breast | CPT/HCPCS: G0202 ==

== ENCOUNTER → 2017-05-02 | Outpatient (CLI) | payer OTHER | LOC: BMCIMAGING 10:49 | PROVIDERS: ATTEND Internal Medicine | DX: R92.8 Other abnormal and inconclusive findings on diagnostic imaging of breast (principal) ==

== ENCOUNTER → 2017-05-16 | Outpatient (CLI) | payer OTHER ==
[~2017-05-16] MED LIST changes: +BUPIVACAINE 0.5% 30 ML SDV ONE; -GADOBUTROL 10 ML VIAL IVP ONE; +LIDOCAINE 1% 300 MG/30 ML SDV ONE; +THROMBIN (BOVINE) 5,000 UNIT VIAL TP ONE
== END ==
LOC: FIMAGING 07:24
PROVIDERS: ATTEND Internal Medicine
PROC: 0HBU3ZZ Excision of Left Breast, Percutaneous Approach (ICD-10-PCS; principal; 2017-05-16)
DX: C50.912 Malignant neoplasm of unspecified site of left female breast (principal)

== ENCOUNTER 2017-07-17 06:34 | Day surgery (SDC) | payer OTHER ==
[2017-07-17] MEDS ORDERED: LR 1,000 ML IV ONE (06:51)
[2017-07-17] MEDS ORDERED: LIDOCAINE 1% 300 MG/30 ML SDV ONE (07:37)
[2017-07-17] MEDS ORDERED: BUPIVACAINE 0.5% 30 ML SDV ONE (07:48)
[2017-07-17] MEDS ORDERED: NA BICARBONATE 50 MEQ/50 ML VIAL ONE (07:49)
[2017-07-17] MEDS ORDERED: LIDO/EPI 1% **for epidural** 30 ML SDV ONE (07:49)
--- NOTE | 2017-07-17 08:53 | PDANEPAE ---
ANE History of Present Illness Left lumpectomy ANE Past Medical History - Cardiovascular History Hx Hypertension: No Hx Arrhythmias: No Hx Chest Pain: No Hx Coronary Artery / Peripheral Vascular Disease: No Hx CHF / Valvular Disease: No Hx Palpitations: No Cardiovascular History Comment: 48 HRS HOLTER MONITOR SOME SVT NO EVIDENCE OF A- FIB - Pulmonary History Hx COPD: No Hx Asthma/Reactive Airway Disease: No Hx Recent Upper Respiratory Infection: No Hx Oxygen in Use at Home: No Hx Sleep Apnea: No Sleep Apnea Screening Result - Last Documented: Negative - Neurologic History Hx Cerebrovascular Accident: No Hx Seizures: No Hx Dementia: No Neurologic History Comment: NOT A GOOD HISTORIAN. ? 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 PERIPHERAL NEUROPATHY - Chronic Pain History Chronic Pain: No - Surgical History Prior Surgeries: RT BREAST LUMPECTOMY. SAMIR CATARACTS. C SECTION X2. APPENDECTOMY. R BREAST BX. TONSILLECTOMY ANE Review of Systems Review of Systems: - Exercise capacity METS (RN): 2 METS - Systems Constitutional: Reports: weight loss ANE Patient History - Allergies Allergies/Adverse Reactions: No Known Allergies Allergy (Verified 05/03/17 12:11) - Home Medications Home Medications: Levothyroxine [Synthroid 50 mcg (*)] 50 mcg PO DAILY06 08/14/14 [Last Taken 07/01] Herbals/Supplements -Info Only 1 ea PO DAILY 01/12/17 [Last Taken 07/10/17] Aspirin 81mg (*) DAILY 06/21/17 [Last Taken 07/16/17] Rosuvastatin Calcium DAILY06 06/21/17 [Last Taken 07/16/17] Iron 07/17/17 [Last Taken 07/16/17] Omeprazole-Bicarb 20-1,100 Cap 20 mg PO DAILY 07/17/17 [Last Taken 07/17/17] - NPO status NPO Status: no food or drink >8 hours NPO Since - Liquids (Date): 07/17/17 NPO Since - Liquids (Time): 05:30 NPO Since - Solids (Date): 07/16/17 NPO Since - Solids (Time): 19:00 - Smoking Hx Smoking Status: Never smoked - Family Anes Hx Family Hx Anesthesia Complications: NEG ANE Labs/Vital Signs - Vital Signs Blood Pressure: 159/88 Heart Rate: 71 Respiratory Rate: 16 O2 Sat (%): 97 Height: 147.32 cm Weight: 46.266 kg ANE Physical Exam - Airway Neck exam: decreased ROM Mallampati Score: Class 2 Mouth exam: poor dentition - Pulmonary Pulmonary: no respiratory distress - Cardiovascular Cardiovascular: regular rate and rhythym - ASA Status ASA Status: II ANE Anesthesia Plan Anesthesia Plan: MAC
--- NOTE | 2017-07-17 09:16 | PDHPUP ---
History & Physical Update H&P update statement: This history and physical update is based on an assessment of the patient which was completed after admission or registration (within 24 hours), but prior to the surgery/procedure. H&P update: H&P reviewed & patient examined, no change in patient's condition since H&P completed
[2017-07-17] MEDS ORDERED: fentaNYL 100 MCG/2 ML INJ ONE (09:34)
[2017-07-17] MEDS ORDERED: PROPOFOL 200 MG/20 ML VIAL ONE ×2 (09:34)
--- NOTE | 2017-07-17 10:33 | POSTOPPROG ---
Post Op Note Date of Operation: 07/17/17 Surgeon: Guevara Bolden Anesthesiologist: Dr. Jin Anesthesia: IV Sedation Pre-op Diagnosis: L breast cancer Post-op Diagnosis: same Procedure: L breast NL lumpectomy Inf/Abcess present in the surg proc area at time of surgery?: No EBL: Minimal
[2017-07-17] MEDS ORDERED: NALOXONE HCL 0.4 MG/ML INJ IVP PRN (10:59)
[2017-07-17] MEDS ORDERED: DEXAMETHASONE 4 MG/ML VIAL IVP PRN (10:59)
[2017-07-17] MEDS ORDERED: fentaNYL 100 MCG/2 ML INJ IVP PRN (10:59)
[2017-07-17] MEDS ORDERED: ACETAMINOPHEN 500 MG TAB PO PRN (10:59)
--- NOTE | 2017-07-17 10:59 | POSTANESTH ---
Post Anesthetic Evaluation Cardiovascular Status: Normal, Stable Respiratory Status: Normal, Stable Level of Consciousness/Mental Status: Can Participate in Eval Pain Control: Adequate, Prn Tx Ordered Nausea/Vomiting Control: Adequate, Prn Tx Ordered Complications Possibly Related to Anesthesia: None Noted
[2017-07-17 11:22] VITALS: TEMP 97.7
[2017-07-17 11:34] VITALS: BP 119/62; RESP 14; O2SAT 93
[2017-07-17 11:35] VITALS: PULSE 68
--- NOTE | 2017-07-17 15:47 | GOP ---
[f rep st] OPERATIVE REPORT DATE OF OPERATION: 07/17/2017 SURGEON: Dhruv Bolden MD ANESTHESIA: Monitored anesthetic care. ANESTHESIOLOGIST: Dr. Jin. PREOPERATIVE DIAGNOSIS: Left breast cancer. POSTOPERATIVE DIAGNOSIS: Left breast cancer. PROCEDURE PERFORMED: Left breast needle localization lumpectomy. FINDINGS: Patient had the lesion excised fully with the aid of needle localization. ESTIMATED BLOOD LOSS: 20 cc. INDICATIONS: An 87-year-old female with a history of core biopsy of left breast demonstrating cancer . Risks and benefits of the procedure were discussed with the patient and her family, their question s were answered, and they wished to proceed. DESCRIPTION OF PROCEDURE: With the patient in the supine position, after the induction of adequate I V sedation, the patient was prepped and draped in the standard surgical fashion. 1% lidocaine and 0. 5% Marcaine were injected throughout the 9 o'clock area of the left breast. An elliptical incision w as made over the site of the wire termination point. This was carried down to subcutaneous tissue wi th sharp dissection. Sharp dissection was then used to completely excise the lesion around the wire going down to the fascia posteriorly. The wire was gently removed, and the specimen was marked with sutures. The short suture demonstrated the superior margin, the longer suture the lateral margin, an d the double suture demonstrated the posterior margin. The specimen was then sent for radiologic anne luation. This confirmed removal of the entire specimen. Air was then cauterized for hemostasis. Monsivais bcutaneous tissue was approximated with 3-0 Vicryl in interrupted fashion. Skin was closed with 4-0 Monocryl subcuticular stitch. Wound was sterilely dressed. The patient was taken to the PACU in sta ble condition. COMPLICATIONS: None. DRAINS: None. /[id number]/MODL
== END 2017-07-17 12:11 | disposition home or self-care (01) ==
LOC: FSGY 06:34
PROVIDERS: ATTEND Surgery
PROC: 0HBU0ZZ Excision of Left Breast, Open Approach (ICD-10-PCS; principal; 2017-07-17 09:00)
DX: C50.212 Malignant neoplasm of upper-inner quadrant of left female breast (principal); Z17.0 Estrogen receptor positive status [ER+]
CPT/HCPCS: J2704; J3010

== ENCOUNTER 2018-04-24 00:44 | Observation (INO) | payer OTHER ==
[2018-04-24 01:08] LABS: PLATELET COUNT 207 10^3/uL (150-400)
--- NOTE | 2018-04-24 01:08 | EDPHY ---
H & P Stated Complaint: fall x2 Time Seen by Provider: 04/24/18 00:52 HPI/ROS: Chief Complaint: Weakness, fall x2 HPI: 88-year-old woman who lives in independent living is presenting with 2 mechanical falls this morning. EMS was initially called after the patient fell a after feeling weak. She had no complaints at that time was able to ambulate in her residence. They were called again 30 min ago after the patient is again fell. For so that she slid out of bed. She did not hit her head. No loss of consciousness. Initially EMS reports the patient was awake and alert and providing an excellent history. Patient now is a bit confused and admits to falling but does not able tell me why she fell. She denies tripping. Did not hit her head. Currently is complaining of feeling weak. She states she has felt weak for the last day or so. EMS noted possibly low-grade fever. No chest pain shortness of breath. No urinary urgency or frequency. No nausea or vomiting. No abdominal pain. She does have a history of a similar episode in January at which time she was found to be both dehydrated but also did have some melena. EGD was refused at that time. She denies any dark black stools. ROS: 10 systems were reviewed and were negative except those elements noted in the HPI. PMH: Hypothyroidism Social History: No smoking, no alcohol, lives in independent living at [facility] Family History: non-contributory Physical Exam: Gen: Awake, Alert, No Distress HEENT: Nose: no rhinorrhea Eyes: PERRLA, EOMI Mouth: Dry mucosa Neck: Supple, no JVD Chest: nontender, lungs clear to auscultation Heart: S1, S2 normal, no murmur Abd: Soft, non-tender, no guarding Back: no CVA tenderness, no midline tenderness Ext: no edema, non-tender Skin: no rash Neuro: CN II-XII intact, Sensation grossly intact, Strength 5/5 in bilateral upper and lower extremities - Personal History Tetanus Vaccine Date: unsure - Medical/Surgical History Hx Asthma: No Hx Chronic Respiratory Disease: No Hx Diabetes: No Hx Cardiac Disease: No Hx Renal Disease: No Hx Cirrhosis: No Hx Alcoholism: No Hx HIV/AIDS: No Hx Splenectomy or Spleen Trauma: No Other PMH: hypothyroidism, appendectomy, hyperlipidemia - Social History Smoking Status: Never smoked Constitutional: Initial Vital Signs Temperature (C) 37.1 C 04/24/18 00:54 Heart Rate 87 04/24/18 00:54 Respiratory Rate 18 04/24/18 00:54 Blood Pressure 133/78 H 04/24/18 00:54 O2 Sat (%) 92 04/24/18 00:54 O2 Delivery Mode Room Air Allergies/Adverse Reactions: No Known Allergies Allergy (Verified 04/24/18 00:54) Home Medications: Medication Instructions Recorded Herbals/Supplements -Info Only 1 ea PO DAILY 01/31/18 Levothyroxine [Synthroid 50 mcg 50 mcg PO DAILY06 01/31/18 (*)] Rosuvastatin Calcium [Crestor] 5 mg PO DAILY 01/31/18 Pantoprazole Sodium [Protonix 40mg 40 mg PO BID #60 tab 02/04/18 (*)] Medical Decision Making - Diagnostics EKG Interpretation: ECG time 1:12 a.m., sinus rhythm with a rate of 83, normal axis, normal intervals, no acute ST or T-wave changes. ED Course/Re-evaluation: 88-year-old status post fall x 2 from independent living. Patient is confused. Certainly not her described baseline. Urinalysis is negative. Chest x-ray is unremarkable. Laboratory evaluations are largely unremarkable. She is anemic. I reviewed her medical records. She had a very similar presentation in January was found to be dehydrated at this time. Plan will be for IV hydration. I have discussed with the hospitalist, Dr. Page. He will admit to his service for continued hydration and evaluation. - Data Points Laboratory Results: Laboratory Results 04/24/18 00:45 04/24/18 00:45 04/24/18 04/24/18 04/24/18 01:24 01:15 00:56 WBC RBC Hgb Hct MCV MCH MCHC RDW Plt Count MPV Neut % (Auto) Lymph % (Auto) Haskell % (Auto) Eos % (Auto) Baso % (Auto) Nucleat RBC Rel Count Absolute Neuts (auto) Absolute Lymphs (auto) Absolute Monos (auto) Absolute Eos (auto) Absolute Basos (auto) Absolute Nucleated RBC Immature Gran % Immature Gran # Sodium Potassium Chloride Carbon Dioxide Anion Gap BUN Creatinine Estimated GFR Glucose Calcium POC Troponin I 0.02 ng/mL ng/mL (0.00-0.08) Urine Color YELLOW Urine Appearance HAZY Urine pH 5.0 (5.0-7.5) Ur Specific [place] 1.013 (1.002-1.030) Urine Protein 1+ H (NEGATIVE) Urine Ketones NEGATIVE (NEGATIVE) Urine Blood NEGATIVE (NEGATIVE) Urine Nitrate NEGATIVE (NEGATIVE) Urine Bilirubin NEGATIVE (NEGATIVE) Urine Urobilinogen NEGATIVE EU EU (0.2-1.0) Ur Leukocyte Esterase NEGATIVE (NEGATIVE) Urine RBC 1-3 /hpf /hpf (0-3) Urine WBC 1-3 /hpf /hpf (0-3) Ur Epithelial Cells NONE SEEN /lpf /lpf (NONE-1+) Urine Mucus TRACE /lpf /lpf (NONE-1+) Urine Glucose NEGATIVE (NEGATIVE) Nasal Influenza A PCR Pending Nasal Influenza B PCR Pending 04/24/18 04/24/18 00:45 00:45 WBC 5.99 10^3/uL 10^3/uL (3.80-9.50) RBC 3.52 10^6/uL L 10^6/uL (4.18-5.33) Hgb 11.3 g/dL L g/dL (12.6-16.3) Hct 33.3 % L % (38.0-47.0) MCV 94.6 fL fL (81.5-99.8) MCH 32.1 pg pg (27.9-34.1) MCHC 33.9 g/dL g/dL (32.4-36.7) RDW 16.4 % H % (11.5-15.2) Plt Count 207 10^3/uL 10^3/uL (150-400) MPV 9.8 fL fL (8.7-11.7) Neut % (Auto) 77.0 % H % (39.3-74.2) Lymph % (Auto) 11.9 % L % (15.0-45.0) Haskell % (Auto) 9.2 % % (4.5-13.0) Eos % (Auto) 1.2 % % (0.6-7.6) Baso % (Auto) 0.7 % % (0.3-1.7) Nucleat RBC Rel Count 0.0 % % (0.0-0.2) Absolute Neuts (auto) 4.62 10^3/uL 10^3/uL (1.70-6.50) Absolute Lymphs (auto) 0.71 10^3/uL L 10^3/uL (1.00-3.00) Absolute Monos (auto) 0.55 10^3/uL 10^3/uL (0.30-0.80) Absolute Eos (auto) 0.07 10^3/uL 10^3/uL (0.03-0.40) Absolute Basos (auto) 0.04 10^3/uL 10^3/uL (0.02-0.10) Absolute Nucleated RBC 0.00 10^3/uL 10^3/uL (0-0.01) Immature Gran % 0.0 % % (0.0-1.1) Immature Gran # 0.00 10^3/uL 10^3/uL (0.00-0.10) Sodium 130 mEq/L L mEq/L (135-145) Potassium 4.3 mEq/L mEq/L (3.5-5.2) Chloride 99 mEq/L mEq/L (97-110) Carbon Dioxide 24 mEq/l mEq/l (22-31) Anion Gap 7 mEq/L mEq/L (6-14) BUN 33 mg/dL H mg/dL (7-23) Creatinine 0.8 mg/dL mg/dL (0.6-1.0) Estimated GFR > 60 Glucose 119 mg/dL H mg/dL (70-100) Calcium 9.3 mg/dL mg/dL (8.5-10.4) POC Troponin I Urine Color Urine Appearance Urine pH Ur Specific Leisen[place] Urine Protein Urine Ketones Urine Blood Urine Nitrate Urine Bilirubin Urine Urobilinogen Ur Leukocyte Esterase Urine RBC Urine WBC Ur Epithelial Cells Urine Mucus Urine Glucose Nasal Influenza A PCR Nasal Influenza B PCR Point of Care Test Results: Chemistry 04/24/18 00:56 POC Troponin I 0.02 ng/mL ng/mL (0.00-0.08) Departure - Departure Clinical Impression: Dehydration Condition: Fair Referrals: NONE *PRIMARY CARE P,. [Primary Care Provider] - As per Instructions
[2018-04-24] MEDS ORDERED: ONDANSETRON 4 MG/2 ML VIAL IVP PRN (01:43)
[2018-04-24] MEDS ORDERED: ONDANSETRON DISINTEGRATING 4 MG TAB PO PRN (01:43)
[2018-04-24] MEDS ORDERED: ACETAMINOPHEN 325 MG TAB PO PRN (01:43)
[2018-04-24] MEDS ORDERED: NS 500 ML IV ONE (01:44)
--- NOTE | 2018-04-24 01:58 | CPEKG ---
Test Reason : OPEN Blood Pressure : / mmHG Vent. Rate : 083 BPM Atrial Rate : 083 BPM P-R Int : 157 ms QRS Dur : 083 ms QT Int : 377 ms P-R-T Axes : 043 -13 036 degrees QTc Int : 443 ms Sinus rhythm Probable left atrial enlargement Confirmed by Antonio Jung ([id number] on 04/24/2018 1:57:44 AM Referred By: Confirmed By:Antonio Jung
--- NOTE | 2018-04-24 02:30 | PDGENHP ---
History and Physical - Chief Complaint Fall, weakness - History of Present Illness 88 yo F w/ hypothyroidism and mild dementia presents with generalized weakness. EMS was called to her independent living facility [facility] after she suffered a fall. She was observed by EMS and returned home as she was able to ambulate back to her room and was denying complaints. EMS was again called shortly after she slid out of bed. Patient tells me she feels generally weak but denies other symptoms. Specifically she denies fever, sore throat, cough, SOB, abdominal pain, dysuria, and diarrhea. During the fall she did not experience LOC or head trauma. Work-up in the ED has been unremarkable aside from mild hyponatremia. She is being admitted for observation. Case discussed with ED physician Dr. Jung; records reviewed and summarized above. History Information - Allergies/Home Medication List Allergies/Adverse Reactions: No Known Allergies Allergy (Verified 04/24/18 00:54) Home Medications: Herbals/Supplements -Info Only 1 ea PO DAILY 01/31/18 [Last Taken Unknown] Levothyroxine [Synthroid 50 mcg (*)] 50 mcg PO DAILY06 01/31/18 [Last Taken ] Rosuvastatin Calcium [Crestor] 5 mg PO DAILY 01/31/18 [Last Taken Unknown] I have personally reviewed and updated: family history, medical history - Past Medical History Additional medical history: Hypothyroid - Surgical History Reports: no pertinent surgical hx - Family History Additional family history: Asked, does not recall - Social History Smoking Status: Never smoked Additional social history: Has lived in [facility] for 7 years, originally from [place] and moved to the [facility] in [place], has 2 daughters (1 is a foreign in [facility], the other is a PMR physician in [place]) Review of Systems Review of Systems: ROS: 10pt was reviewed & negative except for what was stated in HPI & below Physical Exam Physical Exam: Temp Pulse Resp BP Pulse Ox 37.1 C 83 20 142/87 H 93 04/24/18 00:54 04/24/18 02:13 04/24/18 02:13 04/24/18 02:13 04/24/18 02:13 Constitutional: no apparent distress, not in pain Eyes: PERRL, EOMI Ears, Nose, Mouth, Throat: moist mucous membranes, no oral mucosal ulcers Cardiovascular: regular rate and rhythym, no murmur, rub, or gallop Respiratory: no respiratory distress, clear to auscultation Gastrointestinal: normoactive bowel sounds, soft, non-tender abdomen Skin: warm, normal color Musculoskeletal: no muscle tenderness, no joint effusions Neurologic: AAOx3, CN II-XII Intact Psychiatric: interacting appropriately, not anxious Lab Data & Imaging Review 04/24/18 00:45 04/24/18 00:45 WBC 5.99 10^3/uL (3.80-9.50) 04/24/18 00:45 RBC 3.52 10^6/uL (4.18-5.33) L 04/24/18 00:45 Hgb 11.3 g/dL (12.6-16.3) L 04/24/18 00:45 Hct 33.3 % (38.0-47.0) L 04/24/18 00:45 MCV 94.6 fL (81.5-99.8) 04/24/18 00:45 MCH 32.1 pg (27.9-34.1) 04/24/18 00:45 MCHC 33.9 g/dL (32.4-36.7) 04/24/18 00:45 RDW 16.4 % (11.5-15.2) H 04/24/18 00:45 Plt Count 207 10^3/uL (150-400) 04/24/18 00:45 MPV 9.8 fL (8.7-11.7) 04/24/18 00:45 Neut % (Auto) 77.0 % (39.3-74.2) H 04/24/18 00:45 Lymph % (Auto) 11.9 % (15.0-45.0) L 04/24/18 00:45 Stark % (Auto) 9.2 % (4.5-13.0) 04/24/18 00:45 Eos % (Auto) 1.2 % (0.6-7.6) 04/24/18 00:45 Baso % (Auto) 0.7 % (0.3-1.7) 04/24/18 00:45 Nucleat RBC Rel Count 0.0 % (0.0-0.2) 04/24/18 00:45 Absolute Neuts (auto) 4.62 10^3/uL (1.70-6.50) 04/24/18 00:45 Absolute Lymphs (auto) 0.71 10^3/uL (1.00-3.00) L 04/24/18 00:45 Absolute Monos (auto) 0.55 10^3/uL (0.30-0.80) 04/24/18 00:45 Absolute Eos (auto) 0.07 10^3/uL (0.03-0.40) 04/24/18 00:45 Absolute Basos (auto) 0.04 10^3/uL (0.02-0.10) 04/24/18 00:45 Absolute Nucleated RBC 0.00 10^3/uL (0-0.01) 04/24/18 00:45 Immature Gran % 0.0 % (0.0-1.1) 04/24/18 00:45 Immature Gran # 0.00 10^3/uL (0.00-0.10) 04/24/18 00:45 Sodium 130 mEq/L (135-145) L 04/24/18 00:45 Potassium 4.3 mEq/L (3.5-5.2) 04/24/18 00:45 Chloride 99 mEq/L (97-110) 04/24/18 00:45 Carbon Dioxide 24 mEq/l (22-31) 04/24/18 00:45 Anion Gap 7 mEq/L (6-14) 04/24/18 00:45 BUN 33 mg/dL (7-23) H 04/24/18 00:45 Creatinine 0.8 mg/dL (0.6-1.0) 04/24/18 00:45 Estimated GFR > 60 04/24/18 00:45 Glucose 119 mg/dL (70-100) H 04/24/18 00:45 Calcium 9.3 mg/dL (8.5-10.4) 04/24/18 00:45 POC Troponin I 0.02 ng/mL (0.00-0.08) 04/24/18 00:56 Urine Color YELLOW 04/24/18 01:24 Urine Appearance HAZY 04/24/18 01:24 Urine pH 5.0 (5.0-7.5) 04/24/18 01:24 Ur Specific [place] 1.013 (1.002-1.030) 04/24/18 01:24 Urine Protein 1+ (NEGATIVE) H 04/24/18 01:24 Urine Ketones NEGATIVE (NEGATIVE) 04/24/18 01:24 Urine Blood NEGATIVE (NEGATIVE) 04/24/18 01:24 Urine Nitrate NEGATIVE (NEGATIVE) 04/24/18 01:24 Urine Bilirubin NEGATIVE (NEGATIVE) 04/24/18 01:24 Urine Urobilinogen NEGATIVE EU (0.2-1.0) 04/24/18 01:24 Ur Leukocyte Esterase NEGATIVE (NEGATIVE) 04/24/18 01:24 Urine RBC 1-3 /hpf (0-3) 04/24/18 01:24 Urine WBC 1-3 /hpf (0-3) 04/24/18 01:24 Ur Epithelial Cells NONE SEEN /lpf (NONE-1+) 04/24/18 01:24 Urine Mucus TRACE /lpf (NONE-1+) 04/24/18 01:24 Urine Glucose NEGATIVE (NEGATIVE) 04/24/18 01:24 Nasal Influenza A PCR NEGATIVE FOR FLU A (NEGATIVE) 04/24/18 01:15 Nasal Influenza B PCR NEGATIVE FOR FLU B (NEGATIVE) 04/24/18 01:15 Visualized and Interpreted Chest x-ray results: Yes Chest X-Ray results: no infiltrate Visualized and Interpreted EKG results: Yes EKG Interpretation: Positive for: normal sinsus rhythm Assessment & Plan Assessment: 88 yo F w/ hypothyroidism and mild dementia presents with generalized weakness. Plan: 1. Generalized weakness - Unclear etiology; VS are WNL. Laboratory work-up notable only for mild hyponatremia, making dehydration a possibility. She denies infectious symptoms but viral infection is another possibility noting she resides at a living facility. - Admit for observation - IVF overnight - PT/OT evaluations 2. Mild dementia - Patient alert and oriented during my evaluation but complaining of fatigue and weakness. - Minimize centrally acting medications 3. Hypothyroid - Continue LTX 4. Normocytic anemia - Hgb much improved from last visit in January when UGIB was suspected. She denies signs of bleeding. - Monitor CBC - Continue PPI Diet - Regular, mIVF Code - DNR per discussion with patient and form from living facility Ppx - SCDs noting concern for recent UGIB Dispo - Admit under observation status
[2018-04-24] MEDS: NS 1,000 ML IV SCH ×2 (04:53→14:28)
--- NOTE | 2018-04-24 09:51 | ASMTCMCOM ---
JUSTIN Note CM Note Notes: Reviewed chart, pt admitted with generalized weakness. She lives at [facility], has 2 dtrs that live out of state, and has mild dementia. PT/OT to [facility]. DC Plan: TBD Date Signed: 04/24/2018 09:50 AM Electronically Signed By:Irma Pandey RN
--- NOTE | 2018-04-24 14:59 | PDIAF ---
- Diagnosis Diagnosis: Weakness Code Status: Do Not Resuscitate - Medication Management Discharge Medications: electronically signed and located in the Home Medication List. PICC Care - Routine: N/A - Orders Services needed: Physical Therapy, Occupational Therapy Diet Recommendation: no restrictions on diet - Follow Up Care Current Providers and Referrals: NONE *PRIMARY CARE P,. [Primary Care Provider] - As per Instructions
[2018-04-24 16:27] VITALS: BP 142/80
--- NOTE | 2018-04-24 16:42 | ASMTLACE ---
LACE Length of stay for Answers: 2 days current admission Acuity / Level of Answers: Yes Care: Did the patient have an inpatient admission? Comorbidities - select Answers: Dementia all that apply Other Notes: hypothyroid # of Emergency department Answers: 1-2 visits in the last 6 months Score: 10 Date Signed: 04/24/2018 04:42 PM Electronically Signed By:MINGO Cee
--- NOTE | 2018-04-24 16:53 | ASMTCMCOM ---
CM Note CM Note Notes: Pt medically stable for d/c back to [facility]. PT rec home. Hospitalist ordered home PT/OT. Spoke with pt dghtr Alma, declines [facility] and reports pt just d/c from [facility] two weeks ago and it is not a need as pt walks about a mile a day in the halls at and Alma was just in [place] for the holidays and saw her mom to not need skilled HC. Pt has unskilled care with [facility], they attend to pt 3 times/day, next at 1900. Spoke with Soumya at with the unskilled staff and alerted her of pt d/c so they can see pt tonight. [facility] cannot provide transport for pt home. Alma reports there is no one to get pt home, Alma amenable to [employer] transport to be billed to pt, transport scheduled for 1645. Faxed clinicals to Soumya at [phone] per her request. Date Signed: 04/24/2018 04:50 PM Electronically Signed By:MINGO Cee
[2018-04-24] MEDS ORDERED: ROSUVASTATIN CALCIUM 10 MG TAB PO SCH (19:00)
--- NOTE | 2018-04-25 03:38 | GDS ---
DISCHARGE DIAGNOSES: 1. Generalized weakness. 2. Mild dementia. 3. Hypothyroidism. 4. Normocytic anemia. PHYSICAL EXAM: GENERAL: The patient is alert. VITAL SIGNS: Afebrile at 36.9, pulse 74, respirator y rate 16, blood pressure is 136/70. She is saturating 94% on room air. I have seen and evaluated t he patient on the day of discharge. HOSPITAL COURSE: The patient is an 88-year-old female, who resides independently at [facility], who presents to the emergency room with complaints of generalized weakness. She was evaluated and d iagnosed with: 1. Generalized weakness. The etiology of this is unclear. The patient has been evaluated by Physic al Therapy and Occupational Therapy. It was felt that she has returned to her baseline. She is eage r to be discharged home and feels capable and strong enough to be discharged home. This may be a com ponent of mild dehydration with some mild hyponatremia. She did receive intravenous fluids and is si gnificantly better. 2. Mild dementia. The patient is at her baseline with regard to this. 3. Hypothyroidism. Her home medications have been continued. 4. Normocytic anemia. She denies any signs of bleeding. This appears to be stable and potentially a chronic condition. DISPOSITION: She will be discharged home independently. I have discussed the patient's discharge wi th the RN. There are no pending studies. DISCHARGE MEDICATIONS: Please refer to EMR form. I have not adjusted the patient's previously presc ribed home medications to the best of my knowledge. /[id number]/MODL
[2018-04-25] MEDS ORDERED: LEVOTHYROXINE 75 MCG TAB PO SCH (06:00)
[2018-04-25] MEDS ORDERED: Herbals/Supplements -Info Only PO SCH (09:00)
== END 2018-04-24 16:54 | disposition home or self-care (01) ==
LOC: EDUNIT# → F3N 02:55
PROVIDERS: ADMIT Student in an Organized Health Care Education/Training Program; ATTEND Internal Medicine
DX: R53.1 Weakness (principal); R29.6 Repeated falls; D64.9 Anemia, unspecified; E86.0 Dehydration; E87.1 Hypo-osmolality and hyponatremia; E03.9 Hypothyroidism, unspecified; E78.5 Hyperlipidemia, unspecified; F03.90 Unspecified dementia, unspecified severity, without behavioral disturbance, psychotic disturbance, mood disturbance, and anxiety; M81.0 Age-related osteoporosis without current pathological fracture; Z87.310 Personal history of (healed) osteoporosis fracture
CPT/HCPCS: 71046; 93005; 97161; 99285; G0378; 84484-ER

== ENCOUNTER 2018-04-28 22:03 | Inpatient (IN) | payer OTHER ==
--- NOTE | 2018-04-28 22:12 | EDPHY ---
H & P Stated Complaint: unwitnessed fall Time Seen by Provider: 04/28/18 22:10 HPI/ROS: HPI: The patient presents with a fall which occurred just prior to arrival. The patient is brought in by ambulance from her assisted living facility called [facility]. As she was found on the ground of her bathroom after some sort of a fall. It appeared that she had hit her head on a portion of a piece of metal which was holding up a mirror. She sustained a head laceration. She does not have any recall of what happened to her. She is now complaining of epigastric pain which is moderate in severity and has been constant, she does not remember when it 1st started. She says that she had a normal day today. She uses a walker at all times to help her walk. She is not taking any new medication. She denies any lightheadedness or dizziness currently. She has a MOST form with her stating that she is comfort measures only. Of note, she was admitted on April 24 for 1 day with a diagnosis of generalized weakness. REVIEW OF SYSTEMS 10 systems were reviewed and negative with the exception of the elements mentioned in the history of present illness. PMHx: Hypertension, hypothyroidism, mild dementia, normocytic anemia TRAUMA PHYSICAL General Appearance: Alert, no distress Head: Left-sided posterior occipital scalp laceration Eyes: Pupils equal, round, reactive ENT, Mouth: No hemotypanium, no oral trauma Neck: Non- tender, trachea midline Respiratory: No chest wall tenderness, no subcutaneous air, lungs clear bilaterally Cardiovascular: Regular rate and rhythm Abdomen: Abdomen is soft and non-tender, pelvis stable Skin: No lacerations, No abrasion Back: No midline T/L/S pain Extremities: Non-tender, full range of motion Neurological: A&Ox3, GCS=15,normal motor function with 5/5 strength in all 4 extremities, normal sensory exam Source: Patient, EMS Exam Limitations: Clinical condition Constitutional: Initial Vital Signs Temperature (C) 36.9 C 04/28/18 22:13 Heart Rate 81 04/28/18 22:13 Respiratory Rate 19 04/28/18 22:13 Blood Pressure 185/86 H 04/28/18 22:13 O2 Sat (%) 94 04/28/18 22:13 O2 Delivery Mode Room Air Allergies/Adverse Reactions: No Known Allergies Allergy (Verified 04/28/18 22:13) Home Medications: Medication Instructions Recorded Herbals/Supplements -Info Only 1 ea PO DAILY 01/31/18 Rosuvastatin Calcium [Crestor] 5 mg PO DAILY@19 01/31/18 Acetaminophen [Tylenol 325mg (*)] 650 mg PO Q4HRS PRN tab 04/24/18 Levothyroxine [Synthroid 75 mcg 75 mcg PO DAILY06 04/24/18 (*)] Medical Decision Making - Diagnostics EKG Interpretation: EKG: Complete interpretation has been separately recorded in the [facility] archive. Summary impression: Normal sinus rhythm. Imaging Results: Imaging Impressions Cervical Spine CT 04/28/18 22:17 Impression: 1. No acute posttraumatic abnormality identified. If there is persistent pain or neurologic deficit, consider MRI and/or flexion and extension views if clinically indicated. 2. 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 Findings discussed with Ritika Frankel MD 04/28/2018 at 23:18. Chest X-Ray 04/28/18 22:17 Impression: Limited chest with no definite acute findings. Head CT 04/28/18 22:17 Impression: 1. No acute intracranial findings. 2. Diffuse cerebral atrophy with periventricular and subcortical low attenuation consistent with chronic microvascular ischemic gliosis. Findings discussed with Ritika Frankel MD 04/28/2018 at 23:18. Imaging: Discussed imaging studies w/ calliope player Radiologist, I viewed and interpreted images myself Procedures: LACERATION REPAIR Procedure: Laceration repair. Verbal consent was obtained from the patient. The linear 4 cm laceration on the left posterior occiput was anesthetized using lidocaine with epinephrine. The wound was scrubbed, draped and explored to its base with a gloved finger. There were no deep structures involved. No tendon injury was identified. The wound required extensive debridement . The wound was repaired with several maksim. The wound repair was simple. The procedure was performed by myself. Differential Diagnosis: 88-year-old female who resides at assisted living presents after a fall in the bathroom tonight with presumed loss of consciousness as patient does not have recall of the event. She thinks she was getting ready for bed. Here, she has a clear scalp laceration and ecchymoses of her right elbow. She is complaining of chest pain. Of note, the patient was admitted to the hospital just 4 days ago for generalized weakness and had a relatively normal workup. She was discharged after working with physical therapy and occupational therapy. In the emergency department, patient had CT scan of her head and cervical spine , both were unremarkable for any acute injury. I was able to remove her cervical collar. Chest x-ray was normal. Basic labs demonstrated hyponatremia and elevated BUN. I suspect she has hypovolemic hyponatremia. She received a 500 cc bolus of normal saline. Other labs including UA were unremarkable. We attempted to ambulate her with a walker, however she was very unsteady and required assistance. Given that she lives fairly independently in assisted living, I do not feel she is safe for discharge at this time. Patient would like to be admitted to the hospital. Though she is comfort measures only, I feel it it is our best course of action to admit her until her weakness hopefully improves. - Data Points Laboratory Results: Laboratory Results 04/28/18 22:10 04/28/18 22:10 04/28/18 04/28/18 04/28/18 23:50 22: 22:10 WBC RBC Hgb Hct MCV MCH MCHC RDW Plt Count MPV Neut % (Auto) Lymph % (Auto) Wilcox % (Auto) Eos % (Auto) Baso % (Auto) Nucleat RBC Rel Count Absolute Neuts (auto) Absolute Lymphs (auto) Absolute Monos (auto) Absolute Eos (auto) Absolute Basos (auto) Absolute Nucleated RBC Immature Gran % Immature Gran # Sodium 129 mEq/L L mEq/L (135-145) Potassium 4.6 mEq/L mEq/L (3.5-5.2) Chloride 95 mEq/L L mEq/L (97-110) Carbon Dioxide 26 mEq/l mEq/l (22-31) Anion Gap 8 mEq/L mEq/L (6-14) BUN 34 mg/dL H mg/dL (7-23) Creatinine 0.9 mg/dL mg/dL (0.6-1.0) Estimated GFR 59 Glucose 113 mg/dL H mg/dL (70-100) Calcium 9.6 mg/dL mg/dL (8.5-10.4) Total Bilirubin 0.5 mg/dL mg/dL (0.1-1.4) AST 40 IU/L IU/L (14-46) ALT 33 IU/L IU/L (9-52) Alkaline Phosphatase 52 IU/L IU/L (38-126) POC Troponin I 0.02 ng/mL ng/mL (0.00-0.08) Total Protein 6.5 g/dL g/dL (6.3-8.2) Albumin 3.8 g/dL g/dL (3.5-5.0) Urine Color PALE YELLOW Urine Appearance CLEAR Urine pH 6.0 (5.0-7.5) Ur Specific [place] 1.004 (1.002-1.030) Urine Protein NEGATIVE (NEGATIVE) Urine Ketones NEGATIVE (NEGATIVE) Urine Blood NEGATIVE (NEGATIVE) Urine Nitrate NEGATIVE (NEGATIVE) Urine Bilirubin NEGATIVE (NEGATIVE) Urine Urobilinogen NEGATIVE EU EU (0.2-1.0) Ur Leukocyte Esterase NEGATIVE (NEGATIVE) Urine Glucose NEGATIVE (NEGATIVE) 04/28/18 22:10 WBC 4.89 10^3/uL 10^3/uL (3.80-9.50) RBC 3.60 10^6/uL L 10^6/uL (4.18-5.33) Hgb 11.3 g/dL L g/dL (12.6-16.3) Hct 34.3 % L % (38.0-47.0) MCV 95.3 fL fL (81.5-99.8) MCH 31.4 pg pg (27.9-34.1) MCHC 32.9 g/dL g/dL (32.4-36.7) RDW 16.1 % H % (11.5-15.2) Plt Count 227 10^3/uL 10^3/uL (150-400) MPV 9.6 fL fL (8.7-11.7) Neut % (Auto) 61.8 % % (39.3-74.2) Lymph % (Auto) 23.1 % % (15.0-45.0) Wilcox % (Auto) 9.4 % % (4.5-13.0) Eos % (Auto) 3.7 % % (0.6-7.6) Baso % (Auto) 1.2 % % (0.3-1.7) Nucleat RBC Rel Count 0.0 % % (0.0-0.2) Absolute Neuts (auto) 3.02 10^3/uL 10^3/uL (1.70-6.50) Absolute Lymphs (auto) 1.13 10^3/uL 10^3/uL (1.00-3.00) Absolute Monos (auto) 0.46 10^3/uL 10^3/uL (0.30-0.80) Absolute Eos (auto) 0.18 10^3/uL 10^3/uL (0.03-0.40) Absolute Basos (auto) 0.06 10^3/uL 10^3/uL (0.02-0.10) Absolute Nucleated RBC 0.00 10^3/uL 10^3/uL (0-0.01) Immature Gran % 0.8 % % (0.0-1.1) Immature Gran # 0.04 10^3/uL 10^3/uL (0.00-0.10) Sodium Potassium Chloride Carbon Dioxide Anion Gap BUN Creatinine Estimated GFR Glucose Calcium Total Bilirubin AST ALT Alkaline Phosphatase POC Troponin I Total Protein Albumin Urine Color Urine Appearance Urine pH Ur Specific Supply Urine Protein Urine Ketones Urine Blood Urine Nitrate Urine Bilirubin Urine Urobilinogen Ur Leukocyte Esterase Urine Glucose Medications Given: Discontinued Medications Sodium Chloride (Ns) 500 mls @ 1,000 mls/hr IV EDNOW ONE PRN Reason: Protocol Stop: 04/28/18 23:07 Last Admin: 04/28/18 22:52 Dose: 500 mls Point of Care Test Results: Chemistry 04/28/18 22:19 POC Troponin I 0.02 ng/mL ng/mL (0.00-0.08) Departure - Departure Disposition: [facility] Inpatient Acute Clinical Impression: Fall from ground level, Hyponatremia, Unable to ambulate Occipital scalp laceration Qualifiers: Encounter type: initial encounter Qualified Code(s): S01.01XA - Laceration without foreign body of scalp, initial encounter Head injury Qualifiers: Encounter type: initial encounter Qualified Code(s): S09.90XA - Unspecified injury of head, initial encounter Condition: Fair Instructions: St[facility] (ED) Additional Instructions: Your maksim should be removed in 10 days on May 09. Referrals: NONE *PRIMARY CARE P,. [Unknown] - As per Instructions
[2018-04-28 22:24] LABS: PLATELET COUNT 227 10^3/uL (150-400)
[2018-04-28] MEDS ORDERED: NS 500 ML IV ONE (22:38)
--- NOTE | 2018-04-28 23:08 | CPEKG ---
Test Reason : OPEN Blood Pressure : / mmHG Vent. Rate : 079 BPM Atrial Rate : 079 BPM P-R Int : 158 ms QRS Dur : 085 ms QT Int : 404 ms P-R-T Axes : 052 -09 043 degrees QTc Int : 464 ms Sinus rhythm Probable left atrial enlargement Confirmed by Ritika Frankel ([id number]) on 04/28/2018 11:07:41 PM Referred By: Confirmed By:Ritika Frankel
[2018-04-29] MEDS ORDERED: ONDANSETRON 4 MG/2 ML VIAL IVP PRN (01:57)
[2018-04-29] MEDS ORDERED: ACETAMINOPHEN 325 MG TAB PO PRN (01:57)
[2018-04-29] MEDS ORDERED: ONDANSETRON DISINTEGRATING 4 MG TAB PO PRN (01:57)
--- NOTE | 2018-04-29 02:01 | PDGENHP ---
History and Physical - Chief Complaint fall - History of Present Illness 88yo F with history of hypothyroidism, mild dementia brought in from [facility] after being found down in her bathroom. There was reportedly blood around her head and she was found to have a scalp laceration which was repaired in the ED. She is unsure on the events leading up to the presumed fall. She denies LOC. She is having some mid-chest discomfort since arriving to the hospital. This worsens when she touches her sternum. She states she has been in her usual state of health with normal PO intake. Denies any infectious symptoms. She does report having some dark stools over the last week. Of note, she has been hospitalized twice since 01/2018 for similar presentations. In the ED, a head and c-spine CT was unremarkable. Her sodium level was 129, which was a bit lower than prior levels. She was unable to ambulate in the ED. Case discussed with ED provider Ritika Frankel. History Information - Allergies/Home Medication List Allergies/Adverse Reactions: No Known Allergies Allergy (Verified 04/28/18 22:13) Home Medications: Herbals/Supplements -Info Only 1 ea PO DAILY 01/31/18 [Last Taken 04/23/18] Rosuvastatin Calcium [Crestor] 5 mg PO DAILY@19 01/31/18 [Last Taken 04/22/18] Levothyroxine [Synthroid 75 mcg (*)] 75 mcg PO DAILY06 04/24/18 [Last Taken 12/02] I have personally reviewed and updated: family history, medical history, social history, surgical history - Past Medical History Additional medical history: Hypothyroid, mild dementia, HLD, anemia - Surgical History Reports: no pertinent surgical hx - Family History Positive for: non-pertinent - Social History Smoking Status: Never smoked Alcohol Use: None Drug Use: None Additional social history: Has lived in [facility] for 7 years, originally from [place] and moved to the [facility] in [place], has 2 daughters (1 is a foreign in [facility], the other is a PMR physician in [place]) Review of Systems Review of Systems: ROS: 10pt was reviewed & negative except for what was stated in HPI & below Physical Exam Physical Exam: Temp Pulse Resp BP Pulse Ox 36.9 C 80 16 166/105 H 97 04/28/18 22:13 04/29/18 01:41 04/29/18 01:41 04/29/18 01:41 04/29/18 01:41 Constitutional: no apparent distress, not in pain, other (elderly, frail) Eyes: PERRL, anicteric sclera, EOMI Ears, Nose, Mouth, Throat: dry mucous membranes Cardiovascular: regular rate and rhythym, no murmur, rub, or gallop, No edema Respiratory: no respiratory distress, no rales or rhonchi, clear to auscultation Gastrointestinal: normoactive bowel sounds, soft, non-tender abdomen, no palpable masses Genitourinary: no bladder fullness, no bladder tenderness Skin: other (bruise right elbow, left occiput laceration) Musculoskeletal: full muscle strength, no muscle tenderness, normal joint ROM, no joint effusions, generalized weakness Neurologic: AAOx3 Psychiatric: interacting appropriately Lab Data & Imaging Review 04/28/18 22:10 04/28/18 22:10 WBC 4.89 10^3/uL (3.80-9.50) 04/28/18 22:10 RBC 3.60 10^6/uL (4.18-5.33) L 04/28/18 22:10 Hgb 11.3 g/dL (12.6-16.3) L 04/28/18 22:10 Hct 34.3 % (38.0-47.0) L 04/28/18 22:10 MCV 95.3 fL (81.5-99.8) 04/28/18 22:10 MCH 31.4 pg (27.9-34.1) 04/28/18 22:10 MCHC 32.9 g/dL (32.4-36.7) 04/28/18 22:10 RDW 16.1 % (11.5-15.2) H 04/28/18 22:10 Plt Count 227 10^3/uL (150-400) 04/28/18 22:10 MPV 9.6 fL (8.7-11.7) 04/28/18 22:10 Neut % (Auto) 61.8 % (39.3-74.2) 04/28/18 22:10 Lymph % (Auto) 23.1 % (15.0-45.0) 04/28/18 22:10 Dunn % (Auto) 9.4 % (4.5-13.0) 04/28/18 22:10 Eos % (Auto) 3.7 % (0.6-7.6) 04/28/18 22:10 Baso % (Auto) 1.2 % (0.3-1.7) 04/28/18 22:10 Nucleat RBC Rel Count 0.0 % (0.0-0.2) 04/28/18 22:10 Absolute Neuts (auto) 3.02 10^3/uL (1.70-6.50) 04/28/18 22:10 Absolute Lymphs (auto) 1.13 10^3/uL (1.00-3.00) 04/28/18 22:10 Absolute Monos (auto) 0.46 10^3/uL (0.30-0.80) 04/28/18 22:10 Absolute Eos (auto) 0.18 10^3/uL (0.03-0.40) 04/28/18 22:10 Absolute Basos (auto) 0.06 10^3/uL (0.02-0.10) 04/28/18 22:10 Absolute Nucleated RBC 0.00 10^3/uL (0-0.01) 04/28/18 22:10 Immature Gran % 0.8 % (0.0-1.1) 04/28/18 22:10 Immature Gran # 0.04 10^3/uL (0.00-0.10) 04/28/18 22:10 Sodium 129 mEq/L (135-145) L 04/28/18 22:10 Potassium 4.6 mEq/L (3.5-5.2) 04/28/18 22:10 Chloride 95 mEq/L (97-110) L 04/28/18 22:10 Carbon Dioxide 26 mEq/l (22-31) 04/28/18 22:10 Anion Gap 8 mEq/L (6-14) 04/28/18 22:10 BUN 34 mg/dL (7-23) H 04/28/18 22:10 Creatinine 0.9 mg/dL (0.6-1.0) 04/28/18 22:10 Estimated GFR 59 04/28/18 22:10 Glucose 113 mg/dL (70-100) H 04/28/18 22:10 Calcium 9.6 mg/dL (8.5-10.4) 04/28/18 22:10 Total Bilirubin 0.5 mg/dL (0.1-1.4) 04/28/18 22:10 AST 40 IU/L (14-46) 04/28/18 22:10 ALT 33 IU/L (9-52) 04/28/18 22:10 Alkaline Phosphatase 52 IU/L (38-126) 04/28/18 22:10 POC Troponin I 0.02 ng/mL (0.00-0.08) 04/28/18 22:19 Total Protein 6.5 g/dL (6.3-8.2) 04/28/18 22:10 Albumin 3.8 g/dL (3.5-5.0) 04/28/18 22:10 Urine Color PALE YELLOW 04/28/18 23:50 Urine Appearance CLEAR 04/28/18 23:50 Urine pH 6.0 (5.0-7.5) 04/28/18 23:50 Ur Specific [place] 1.004 (1.002-1.030) 04/28/18 23:50 Urine Protein NEGATIVE (NEGATIVE) 04/28/18 23:50 Urine Ketones NEGATIVE (NEGATIVE) 04/28/18 23:50 Urine Blood NEGATIVE (NEGATIVE) 04/28/18 23:50 Urine Nitrate NEGATIVE (NEGATIVE) 04/28/18 23:50 Urine Bilirubin NEGATIVE (NEGATIVE) 04/28/18 23:50 Urine Urobilinogen NEGATIVE EU (0.2-1.0) 04/28/18 23:50 Ur Leukocyte Esterase NEGATIVE (NEGATIVE) 04/28/18 23:50 Urine Glucose NEGATIVE (NEGATIVE) 04/28/18 23:50 Visualized and Interpreted Chest x-ray results: Yes Visualized and Interpreted imaging results: Yes Interpretation: CXR: no infiltrate or effusion, normal heart size Visualized and Interpreted EKG results: Yes EKG additional interpertation: ECG: nsr, no acute ishcemia Assessment & Plan Assessment: 88yo F with history of hypothyroidism, mild dementia brought in from [facility] after being found down in her bathroom after a suspected fall. Plan: 1. Fall, generalized weakness: Recurrent issue (3rd hospitalization for same). No syncope. Suspect related to dehydration and overall decline in health. Previous evaluation, including telemetry, without etiology. No obvious infectious culprit. - Gentle IVF - PT, OT - Suspect needs higher level of care at [facility] 2. Hyponatremia: Appears hypovolemic. - IVF as above, recheck in AM 3. Anemia: Hgb slightly down from prior check. With elevated BUN and ? melena, could consider UGIB (this was suspected in past hospitalization, patient refused endoscopic evaluation). - Monitor H/H, transfuse as needed - Start IV PPI BID 4. Scalp laceration: s/p repair in ED 5. Hypothyroid: Resume LT4 replacement when med rec complete. 6. Mild dementia: Appears to be at baseline. VTE ppx: SCDs Code: DNR Diet: regular Dispo: Admit as inpatient, anticipate requiring >2 midnight stay given electrolyte abnormalities and general frailty
[2018-04-29] MEDS: NS 1,000 ML IV SCH ×2 (04:37→16:05)
[2018-04-29 05:59] LABS: PLATELET COUNT 178 10^3/uL (150-400)
[2018-04-29] MEDS: PANTOPRAZOLE SODIUM 40 MG VIAL IVP SCH ×2 (08:55→21:26)
--- NOTE | 2018-04-29 14:15 | ASMTCMCOM ---
CM Note CM Note Notes: Pt is a 88 y/o female admitted for a fall, head lac and weakness. Pt typically lives at [facility]. CM spoke to liaison at [facility]. They report that they are able to hold a bed for pt at their rehab facility. Therapies are recommending SNF. CM met w/ pt for dispo planning. Pt is agreeable to going to rehab. CM spoke to pts daughter Alma and informed her of the plan. CM to follow. Plan: [facility] Date Signed: 04/29/2018 02:15 PM Electronically Signed By:MARQUES Capellan
--- NOTE | 2018-04-29 17:29 | HOSPPROG ---
Hospitalist Progress Note Assessment/Plan: Subjective Follow-up on recurrent mechanical falls. Patient states she has had more frequent falls recently. She currently resides in independent living at [facility]. She says she recalls the falls and denies any syncopal episodes. She nodules that her memory is declining. Objective Vital signs as detailed below Exam General-appears fatigued but awake alert conversant no acute distress Heart-regular rate and rhythm no murmurs Lungs-Clear to auscultation with normal respiratory effort Abdomen-soft nontender nondistended normal bowel sounds -no Coffman catheter in place Extremities-no significant pitting edema or calf pain with palpation Skin-no concerning skin rashes noted, posterior scalp laceration noted Labs as detailed below Assessment and plan Falls-recurrent. This is her 3rd admission over the prior months. Patient will transition to [facility]p at [facility]. Hyponatremia-possibly hypovolemic related. It did improve and resolve overnight with IV fluids. I wonder about the possibility of low oral intake secondary to her dementia. Anemia-slight decline in her hemoglobin from 11-10 overnight. Possibly delusional. She did however have a report of melena on her prior admission. Endoscopy was considered but declined by the patient. Continue to trend her hemoglobin. Scalp laceration-this was sutured in the emergency room. Dementia-no current medical therapy. Hypothyroidism-levothyroxine. Hyperlipidemia-patient is on Crestor. DVT prophylaxis compression devices. Disposition-plan is for transfer to m[facility]p at [facility] when medically clear. Objective: Vital Signs Temp Pulse Resp BP Pulse Ox 36.4 C 76 14 107/53 L 90 L 04/29/18 15:48 04/29/18 15:48 04/29/18 15:48 04/29/18 15:48 04/29/18 15:48 Laboratory Results 04/29/18 05:30 04/29/18 05:30 04/28/18 04/29/18 04/30/18 05:59 05:59 05:59 Intake Total 500 Output Total 1100 Balance -600 ICD10 Worksheet Patient Problems: Problems Problem Status Onset Fall from ground level Acute Head injury Acute Hyponatremia Acute Occipital scalp laceration Acute Unable to ambulate Acute Cellulitis Acute Dehydration Acute Elevated CK Acute Failure to thrive in adult Acute Multiple abrasions Acute
[2018-04-30 06:12] LABS: PLATELET COUNT 173 10^3/uL (150-400)
[2018-04-30] MEDS ORDERED: ASCORBIC ACID 500 MG TAB PO SCH (08:00)
[2018-04-30] MEDS: LEVOTHYROXINE 75 MCG TAB PO SCH (08:41)
[2018-04-30] MEDS ORDERED: Herbals/Supplements -Info Only PO SCH (09:00)
[2018-04-30] MEDS: OMEGA-3 FATTY ACIDS 1,000 MG CAP PO SCH (10:00)
[2018-04-30] MEDS: CHOLECALCIFEROL VIT D3 1,000 UNITS TAB PO SCH (10:00)
[2018-04-30] MEDS: PANTOPRAZOLE SODIUM 40 MG VIAL IVP SCH ×2 (10:00→20:06)
--- NOTE | 2018-04-30 13:45 | HOSPPROG ---
Hospitalist Progress Note Assessment/Plan: 88yo F with history of hypothyroidism, mild dementia brought in from [facility] after being found down in her bathroom. There was reportedly blood around her head and she was found to have a scalp laceration which was repaired in the ED. First encounter, chart reviewed. *Gait instability w falls-recurrent -3 rd admission -needs a higher level of care -PT and OT working w her *Hyponatremia-hypovolemic -Na 134 -with her dementia she may take in less po intake *Anemia-stable *Scalp laceration-this was sutured in the emergency room. *Dementia-no current medical therapy. -she is alert and oriented to date, herself, who the president is but thinks she is at . *Hypothyroidism-levothyroxine. *Hyperlipidemia -Crestor *plan: to go to SNF soon Subjective: Rose has no complaints, feeling fine. Objective: Vital Signs Temp Pulse Resp BP Pulse Ox 36.6 C 76 16 137/70 H 93 04/30/18 12:00 04/30/18 12:00 04/30/18 12:00 04/30/18 12:00 04/30/18 12:00 Laboratory Results 04/30/18 05:55 04/30/18 05:55 04/29/18 04/30/18 05/01/18 05:59 05:59 05:59 Intake Total 500 3475 Output Total 1100 1050 450 Balance -600 2425 -450 - Physical Exam Constitutional: no apparent distress, appears nourished Eyes: PERRL Ears, Nose, Mouth, Throat: hard of hearing Cardiovascular: regular rate and rhythym Respiratory: no respiratory distress Gastrointestinal: normoactive bowel sounds Skin: warm Musculoskeletal: generalized weakness, other (kyphosis) Neurologic: other (alert) Psychiatric: interacting appropriately ICD10 Worksheet Patient Problems: Problems Problem Status Onset Fall from ground level Acute Head injury Acute Hyponatremia Acute Occipital scalp laceration Acute Unable to ambulate Acute Cellulitis Acute Dehydration Acute Elevated CK Acute Failure to thrive in adult Acute Multiple abrasions Acute
[2018-04-30] MEDS: ROSUVASTATIN CALCIUM 10 MG TAB PO SCH (20:07)
--- NOTE | 2018-04-30 23:15 | PDMN ---
Medical Necessity Medical necessity: Pt meets IP criteria as of 04/29/2018 per and [facility] CG-GCD ( General Discharge Criteria); los > 2 mn for ongoing tx and management of gait instability with frequent falls in the setting of dementia as well as hyponatremia; most recent fall resulted in scalp laceration requiring sutures; requiring serial labs, therapies, and management of chronic conditions including dementia, anemia, hypothyroidism and hyperlipidemia.
[2018-05-01] MEDS: LEVOTHYROXINE 75 MCG TAB PO SCH (04:22)
[2018-05-01] MEDS ORDERED: LEVOTHYROXINE 75 MCG TAB PO SCH (06:00)
[2018-05-01] MEDS: CHOLECALCIFEROL VIT D3 1,000 UNITS TAB PO SCH (09:08)
[2018-05-01] MEDS: PANTOPRAZOLE SODIUM 40 MG VIAL IVP SCH ×2 (09:08→20:13)
[2018-05-01] MEDS: OMEGA-3 FATTY ACIDS 1,000 MG CAP PO SCH (09:08)
--- NOTE | 2018-05-01 13:30 | HOSPPROG ---
Hospitalist Progress Note Assessment/Plan: 88yo F with history of hypothyroidism, mild dementia brought in from [facility] after being found down in her bathroom. There was reportedly blood around her head and she was found to have a scalp laceration which was repaired in the ED. First encounter, chart reviewed. *Gait instability w falls-recurrent -3 rd admission -needs a higher level of care -PT and OT working w her *Hyponatremia-hypovolemic -Na 134 -with her dementia she may take in less po intake *Anemia-stable *Scalp laceration-this was sutured in the emergency room. *Dementia-no current medical therapy. -she is alert and oriented to date, herself, who the president is but thinks she is at . *Hypothyroidism-levothyroxine. *Hyperlipidemia -Crestor *plan: to go to SNF soon Subjective: Feeling fine. No issues. Objective: Vital Signs Temp Pulse Resp BP Pulse Ox 36.9 C 73 16 132/69 H 92 05/01/18 12:00 05/01/18 12:00 05/01/18 12:00 05/01/18 12:00 05/01/18 12:00 Laboratory Results 04/30/18 05:55 04/30/18 05:55 04/30/18 05/01/18 05/02/18 05:59 05:59 05:59 Intake Total 3475 900 Output Total 1050 450 300 Balance 2425 450 -300 - Physical Exam Constitutional: appears nourished, not in pain, chronically ill appearing Eyes: PERRL, anicteric sclera, EOMI Ears, Nose, Mouth, Throat: moist mucous membranes, hearing normal, ears appear normal Cardiovascular: regular rate and rhythym, No JVD, No edema Respiratory: no respiratory distress, no rales or rhonchi, reduced air movement Gastrointestinal: normoactive bowel sounds, No tenderness, No ascites Skin: warm, normal color, No mottled Musculoskeletal: normal joint ROM, no joint effusions, generalized weakness Neurologic: No AAOx3 Psychiatric: not anxious, poor insight, poor judgement, poor memory ICD10 Worksheet Patient Problems: Problems Problem Status Onset Hyponatremia Acute Cellulitis Acute Unable to ambulate Acute Fall from ground level Acute Multiple abrasions Acute Dehydration Acute Failure to thrive in adult Acute Elevated CK Acute Occipital scalp laceration Acute Head injury Acute
[2018-05-01] MEDS: ROSUVASTATIN CALCIUM 10 MG TAB PO SCH (20:14)
[2018-05-02] MEDS: LEVOTHYROXINE 75 MCG TAB PO SCH (05:34)
[2018-05-02] MEDS: CHOLECALCIFEROL VIT D3 1,000 UNITS TAB PO SCH (08:20)
[2018-05-02] MEDS: PANTOPRAZOLE SODIUM 40 MG VIAL IVP SCH (08:20)
[2018-05-02] MEDS: OMEGA-3 FATTY ACIDS 1,000 MG CAP PO SCH (08:21)
[2018-05-02 08:57] VITALS: BP 145/85
[2018-05-02] MEDS ORDERED: ASCORBIC ACID 500 MG TAB PO SCH (09:00)
--- NOTE | 2018-05-02 10:34 | PDIAF ---
- Diagnosis Diagnosis: FTT Code Status: Do Not Resuscitate - Medication Management Discharge Medications: electronically signed and located in the Home Medication List. PICC Care - Routine: N/A - Orders Services needed: Registered Nurse, Physical Therapy, Occupational Therapy Diet Recommendation: no restrictions on diet Additional Instructions: Your maksim should be removed in 10 days on May 09. - Follow Up Care Current Providers and Referrals: NONE *PRIMARY CARE P,. [Unknown] - As per Instructions
--- NOTE | 2018-05-02 11:32 | ASMTDCNOTE ---
Case Management Discharge Discharge Order Complete? Answers: Yes Patient to Obtain Answers: Other Notes: Marina [facility]ura Medications Transportation Arranged Answers: Other Notes: [facility] will Pick (Date 05/02/2018 01:00 PM & Time) Faxed Final Orders Answers: Yes Agency/Facility Transfer Answers: Yes Report Printed & Faxed to Receiving Agency Family Notified Answers: Yes Discharge Comments Notes: D/w SALES ACCOUNT DIRECTOR, final orders faxed. Albertina at notified, RN to called report. CM spoke with dtr Alma who is in agreement to use [facility] for transport. Date Signed: 05/02/2018 11:31 AM Electronically Signed By:Irma Pandey RN
--- NOTE | 2018-05-02 11:36 | ASMTLACE ---
LACE Length of stay for Answers: 3 days current admission Acuity / Level of Answers: Yes Care: Did the patient have an inpatient admission? Comorbidities - select Answers: Dementia all that apply Other Notes: HTN; Hypothyroid; HLD # of Emergency department Answers: 3-4 visits in the last 6 months Score: 13 Date Signed: 05/02/2018 11:35 AM Electronically Signed By:Irma Pandey RN
--- NOTE | 2018-05-02 15:16 | GDS ---
DISCHARGE DIAGNOSES: 1. Mechanical fall. 2. Failure to thrive. 3. Head laceration. 4. Gait instability. 5. Hyponatremia. 6. Hypokalemia. 7. Anemia. 8. Dementia. 9. Hypothyroidism. 10. Hyperlipidemia. STUDIES AND PROCEDURES DONE: 1. Cervical spine CT. 2. Scalp suture. PHYSICAL EXAM: GENERAL: The patient is alert. VITAL SIGNS: Afebrile at 36.7, pulse 71, respirator y rate 16, blood pressure is 145/85. She is saturating 91% on room air. I have seen and evaluated t he patient on the day of discharge. HOSPITAL COURSE: The patient is an 88-year-old female who presented to the emergency room after bein g found down in the bathroom. She was evaluated and diagnosed with: 1. Scalp laceration during this hospitalization, and she received suturing in the emergency room and appears stable with no signs of infection. Sutures are to come out on 05/09/2018. 2. Gait instability with recurrent falls. This is the patient's 3rd admission for this diagnosis. It is deemed that she requires a higher level of care than previously residing in independent living. [facility]. 3. Hyponatremia with hypovolemia. Patient's sodium is 134. She will receive mild hydration. She d oes not consume significant amount of fluids. This is stable at time of disposition. 4. Anemia. No signs of bleeding and stable. 5. Dementia. The patient is at her baseline with regard to her mentation. 6. Hypothyroidism. Her medications have been continued. 7. Disposition. She will be discharged to [facility] and potentially transition to a higher level of care. There are no pending studies. DISCHARGE MEDICATIONS: Please refer to EMR form. I have not provided the patient with any new presc riptions at the time of disposition. /[id number]/MODL
--- NOTE | 2018-05-02 16:59 | ASDISCHSUM ---
Discharge Information Plan Status:SNF Medically Cleared to Leave: Discharge Date:05/02/2018 01:14 PM D/C Disposition:Custodial Facility ADT D/C Disposition:Custodial Facility Projected Discharge Date:05/02/2018 11:00 AM Transportation at D/C:Wheelchair Van Discharge Delay Reason: Follow-Up Date:05/02/2018 11:00 AM Discharge Slot: Final Diagnosis: Placement Information Referral Type:*Senior Care/SNF Referral ID:[id number] Provider Name:Marina Ventura [facility] Address 1:[address] Address 2: City:[place] Selection Factors: State:[place] Patient Contact Information Contact Name:ISELA Relationship:Daughter Address:[address] City:[facility] Phone: State/Zip Code:[place] [address] Email: Financial Information Financial Class:Medicare Primary Plan Desc:MEDICARE OUTPATIENT Primary Plan Number:[id number] Secondary Plan Desc:BHAVIK DAVID PPO UNIV COLO Secondary Plan Number:[id number] Assessment Information LACE LACE Length of stay for Answers: 3 days current admission Acuity / Level of Answers: Yes Care: Did the patient have an inpatient admission? Comorbidities - select Answers: Dementia all that apply Other Notes: HTN; Hypothyroid; HLD # of Emergency department Answers: 3-4 visits in the last 6 months Score: 13 Date Signed: 05/02/2018 11:35 AM Electronically Signed By:Irma Pandey RN [facility] CM Progress Note CM Note CM Note Notes: Pt is a 88 y/o female admitted for a fall, head lac and weakness. Pt typically lives at [facility]. CM spoke to liaison at [facility]. They report that they are able to hold a bed for pt at their rehab facility. Therapies are recommending SNF. CM met w/ pt for dispo planning. Pt is agreeable to going to rehab. CM spoke to pts daughter Alma and informed her of the plan. CM to follow. Plan: [facility] Date Signed: 04/29/2018 02:15 PM Electronically Signed By:MARQUES Capellan Case Management Discharge Plan Note Case Management Discharge Discharge Order Complete? Answers: Yes Patient to Obtain Answers: Other Notes: [facility] Medications Transportation Arranged Answers: Other Notes: [facility] will Pick (Date 05/02/2018 01:00 PM & Time) Faxed Final Orders Answers: Yes Agency/Facility Transfer Answers: Yes Report Printed & Faxed to Receiving Agency Family Notified Answers: Yes Discharge Comments Notes: D/w HISTORIC SITE ADMINISTRATOR, final orders faxed. Albertina at notified, RN to called report. JUSTIN spoke with dtr Alma who is in agreement to use [facility] for transport. Date Signed: 05/02/2018 11:31 AM Electronically Signed By:Irma Pandey RN Intervention Information Intervention Type:*Incorrect Registration Date of Service:04/29/2018 10:41 AM Patient Type:Inpatient Staff Member:Shabana Koch Hours: Discipline: Severity: Comment:
== END 2018-05-02 13:14 | DRG 92 ==
LOC: EDUNIT# → INTOOBSV 04-29 00:28 → F3E 04-29 01:52 → OBSVTOIN 04-29 14:27
PROVIDERS: ADMIT Internal Medicine; ATTEND Internal Medicine
PROC: 0HQ0XZZ Repair Scalp Skin, External Approach (ICD-10-PCS; principal; 2018-04-29)
DX: R26.89 Other abnormalities of gait and mobility (principal); S01.01XA Laceration without foreign body of scalp, initial encounter; W19.XXXA Unspecified fall, initial encounter; Y92.192 Bathroom in other specified residential institution as the place of occurrence of the external cause; E87.1 Hypo-osmolality and hyponatremia; E03.9 Hypothyroidism, unspecified; F03.90 Unspecified dementia, unspecified severity, without behavioral disturbance, psychotic disturbance, mood disturbance, and anxiety; E78.5 Hyperlipidemia, unspecified; Z91.81 History of falling
CPT/HCPCS: 84484-ER; 92507-GN; 92523-GN; 97116-GP; 97161-GP; 97166-GO; 97530-GO; 97530-GP; 97535-GO

== ENCOUNTER 2018-07-02 17:28 | Inpatient (IN) | payer OTHER ==
--- NOTE | 2018-07-02 17:39 | EDPHY ---
H & P Time Seen by Provider: 07/02/18 17:36 HPI/ROS: CHIEF COMPLAINT: Falling, history of dementia, reported fever HISTORY OF PRESENT ILLNESS: Patient is brought in by EMS with a report of multiple falls today. She has a history of dementia. She reportedly seemed more confused to some staff member. jail also reported a low-grade fever of 100.4. There has been no history of vomiting, cough or dysuria. The patient herself has no acute complaints however her history is certainly limited by her dementia. REVIEW OF SYSTEMS: A comprehensive 10 point review of systems is otherwise negative aside from elements mentioned in the history of present illness. Source: Patient Exam Limitations: Clinical condition, Physical impairment - Personal History Tetanus Vaccine Date: unsure - Medical/Surgical History Hx Asthma: No Hx Chronic Respiratory Disease: No Hx Diabetes: No Hx Cardiac Disease: No Hx Renal Disease: No Hx Cirrhosis: No Hx Alcoholism: No Hx HIV/AIDS: No Hx Splenectomy or Spleen Trauma: No Other PMH: dementia, hypothyroidism, appendectomy, hyperlipidemia - Social History Smoking Status: Never smoked - Physical Exam Exam: General Appearance: Alert, no distress Head: Small facial ecchymoses noted Eyes: Pupils equal, round, reactive ENT, Mouth: No hemotympanum, no oral trauma Neck: Nontender, trachea midline Respiratory: No chest wall tender, no subcutaneous air, lungs clear bilaterally Cardiovascular: Regular rate and rhythm Abdomen: Abdomen is soft and nontender, pelvis stable Skin: Dressing to right upper extremity, skin tear noted to right elbow, some fluctuant discharged from packing in that is in skin., surrounding cellulitic changes noted Back: No midline T/L/S pain Extremities: Nontender, full range of motion Neurological: Alert and oriented x1 likely baseline, 5/5 strength noted all 4 extremities Constitutional: Initial Vital Signs Temperature (C) 38.0 C 07/02/18 17:36 Heart Rate 108 H 07/02/18 17:36 Respiratory Rate 16 07/02/18 17:36 Blood Pressure 182/102 H 07/02/18 17:36 O2 Sat (%) 92 07/02/18 17:36 O2 Delivery Mode Room Air Allergies/Adverse Reactions: No Known Allergies Allergy (Verified 07/02/18 17:36) Home Medications: Medication Instructions Recorded Levothyroxine [Synthroid 75 mcg 75 mcg PO DAILY06 04/24/18 (*)] [place]-3 Fatty Acids [Fish Oil 1000 1,000 mg PO DAILY 04/29/18 mg (*)] Acetaminophen [Tylenol 325mg (*)] 650 mg PO Q4HRS PRN tab 05/02/18 Cholecalciferol Vit D3 [Vitamin D3 50,000 unit PO Q30D 07/02/18 (*)] [place]-3S/Dha/Epa/Fish Oil [Fish 1 each PO DAILY 07/02/18 Oil [place]-3 Softgel] Medical Decision Making - Diagnostics Imaging Results: Imaging Impressions Cervical Spine CT 07/02/18 17:35 Impression: 1. No acute fracture or prevertebral soft tissue swelling. 2. Multilevel severe degenerative disk arthropathy unchanged. 3. If the patient has persistent pain or neurologic deficits, consider cervical spine MRI. Findings discussed with Emergency Department physician, Demarco Chen M.D., on July 02, [address] 07/02/18 17:35 Impression: Negative. No acute fracture or hemorrhage. Findings discussed with Emergency Department physician, Demarco Chen, on , 18:30. Chest X-Ray 07/02/18 18:49 Impression: 1. Hypoventilation and bibasilar atelectasis. 2. No pneumonia or effusion.. ED Course/Re-evaluation: Patient presents to the ED after mechanical fall. Her history is limited by dementia. She did have a small area of ecchymosis noted to her face. CT scan of the head and cervical spine demonstrate no evidence of an acute injury. Patient was noted to be hyponatremic. She has had this condition in the past. The patient's right elbow does appear to have evidence of an active infection. There is no evidence of septic arthritis clinically. Blood cultures x2 have been obtained. The patient will be started on IV Ancef. The patient will be admitted to the hospital for further evaluation and management. She does not have septic physiology in the ED. Differential Diagnosis: Differential diagnosis considered includes intracranial hemorrhage, skull fracture, cellulitis, septic arthritis, bacteremia, urinary tract infection - Data Points Laboratory Results: Laboratory Results 07/02/18 17:30 07/02/18 17:30 07/02/18 07/02/18 07/02/18 19:00 18:20 17:30 WBC RBC Hgb Hct MCV MCH MCHC RDW Plt Count MPV Neut % (Auto) Lymph % (Auto) [place] % (Auto) Eos % (Auto) Baso % (Auto) Nucleat RBC Rel Count Absolute Neuts (auto) Absolute Lymphs (auto) Absolute Monos (auto) Absolute Eos (auto) Absolute Basos (auto) Absolute Nucleated RBC Immature Gran % Immature Gran # Sodium 126 mEq/L L mEq/L (135-145) Potassium 4.2 mEq/L mEq/L (3.5-5.2) Chloride 92 mEq/L L mEq/L (97-110) Carbon Dioxide 24 mEq/l mEq/l (22-31) Anion Gap 10 mEq/L mEq/L (6-14) BUN 24 mg/dL H mg/dL (7-23) Creatinine 0.8 mg/dL mg/dL (0.6-1.0) Estimated GFR > 60 Glucose 111 mg/dL H mg/dL (70-100) Calcium 9.4 mg/dL mg/dL (8.5-10.4) Urine Color PALE YELLOW Urine Appearance CLEAR Urine pH 8.0 H (5.0-7.5) Ur Specific [place] 1.008 (1.002-1.030) Urine Protein NEGATIVE (NEGATIVE) Urine Ketones NEGATIVE (NEGATIVE) Urine Blood NEGATIVE (NEGATIVE) Urine Nitrate NEGATIVE (NEGATIVE) Urine Bilirubin NEGATIVE (NEGATIVE) Urine Urobilinogen NEGATIVE EU EU (0.2-1.0) Ur Leukocyte Esterase NEGATIVE (NEGATIVE) Urine Glucose NEGATIVE (NEGATIVE) Nasal Influenza A PCR NEGATIVE FOR FLU A (NEGATIVE) Nasal Influenza B PCR NEGATIVE FOR FLU B (NEGATIVE) 07/02/18 17:30 WBC 8.95 10^3/uL 10^3/uL (3.80-9.50) RBC 3.79 10^6/uL L 10^6/uL (4.18-5.33) Hgb 12.0 g/dL L g/dL (12.6-16.3) Hct 35.0 % L % (38.0-47.0) MCV 92.3 fL fL (81.5-99.8) MCH 31.7 pg pg (27.9-34.1) MCHC 34.3 g/dL g/dL (32.4-36.7) RDW 13.8 % % (11.5-15.2) Plt Count 261 10^3/uL 10^3/uL (150-400) MPV 9.3 fL fL (8.7-11.7) Neut % (Auto) 85.1 % H % (39.3-74.2) Lymph % (Auto) 7.6 % L % (15.0-45.0) Davis % (Auto) 6.3 % % (4.5-13.0) Eos % (Auto) 0.4 % L % (0.6-7.6) Baso % (Auto) 0.3 % % (0.3-1.7) Nucleat RBC Rel Count 0.0 % % (0.0-0.2) Absolute Neuts (auto) 7.61 10^3/uL H 10^3/uL (1.70-6.50) Absolute Lymphs (auto) 0.68 10^3/uL L 10^3/uL (1.00-3.00) Absolute Monos (auto) 0.56 10^3/uL 10^3/uL (0.30-0.80) Absolute Eos (auto) 0.04 10^3/uL 10^3/uL (0.03-0.40) Absolute Basos (auto) 0.03 10^3/uL 10^3/uL (0.02-0.10) Absolute Nucleated RBC 0.00 10^3/uL 10^3/uL (0-0.01) Immature Gran % 0.3 % % (0.0-1.1) Immature Gran # 0.03 10^3/uL 10^3/uL (0.00-0.10) Sodium Potassium Chloride Carbon Dioxide Anion Gap BUN Creatinine Estimated GFR Glucose Calcium Urine Color Urine Appearance Urine pH Ur Specific [place] Urine Protein Urine Ketones Urine Blood Urine Nitrate Urine Bilirubin Urine Urobilinogen Ur Leukocyte Esterase Urine Glucose Nasal Influenza A PCR Nasal Influenza B PCR Medications Given: Discontinued Medications Cefazolin Sodium/Dextrose (Ancef 1 Gm (Premix)) 50 mls @ 200 mls/hr IV EDNOW ONE PRN Reason: Protocol Stop: 07/02/18 19:27 Last Admin: 07/02/18 19:39 Dose: 50 mls Sodium Chloride (Ns) 1,000 mls @ 0 mls/hr IV EDNOW ONE; Wide Open PRN Reason: Protocol Stop: 07/02/18 19:15 Last Admin: 07/02/18 19:27 Dose: 1,000 mls Departure - Departure Disposition: [facility] Acute Clinical Impression: Cellulitis, Fever, Dementia Condition: Fair
[2018-07-02 17:50] LABS: PLATELET COUNT 261 10^3/uL (150-400)
[2018-07-02] MEDS ORDERED: NS 1,000 ML IV ONE (19:14)
[2018-07-02] MEDS ORDERED: ACETAMINOPHEN 325 MG TAB PO PRN (19:44)
[2018-07-02] MEDS ORDERED: ONDANSETRON DISINTEGRATING 4 MG TAB PO PRN (19:44)
[2018-07-02] MEDS ORDERED: ONDANSETRON 4 MG/2 ML VIAL IVP PRN (19:44)
--- NOTE | 2018-07-02 19:51 | PDGENHP ---
<Leilani Greenfield - Last Filed: 07/02/18 20:20> History and Physical - Chief Complaint Multiple falls, fever, wound - History of Present Illness 88 y/o female w/ hx of dementia, hypothyroidism, hyperlipidemia, anemia presented to ED via EMS from [facility] after experiencing multiples falls today, low-grade fever of 100.4F, and reportedly seemed more confused to some staff members. She is hyponatremic (126). She clinically presented similiar symptoms x 3 to [facility] within the last 6 months, the most recent being 04/29/18. This visit, she presents w/ RUE wound w/hematoma and suspected cellulitis. Denies hitting head, LOC, CP, SOB, palpitations, pain w/ ROM, nausea, fever, chills, diarrhea. She is being admitted for treatment and monitoring. History Information - Allergies/Home Medication List Allergies/Adverse Reactions: No Known Allergies Allergy (Verified 07/02/18 17:36) Home Medications: Levothyroxine [Synthroid 75 mcg (*)] 75 mcg PO DAILY06 04/24/18 [Last Taken ] [place]-3 Fatty Acids [Fish Oil 1000 mg (*)] 1,000 mg PO DAILY 04/29/18 [Last Taken 07/02/18] Cholecalciferol Vit D3 [Vitamin D3 (*)] 50,000 unit PO Q30D 07/02/18 [Last Taken 06/05/18] [place]-3S/Dha/Epa/Fish Oil [Fish Oil [place]-3 Softgel] 1 each PO DAILY 07/02/18 [ Last Taken 07/02/18] I have personally reviewed and updated: family history, medical history, social history, surgical history - Past Medical History Additional medical history: Hypothyroid, mild dementia, HLD, anemia - Surgical History Reports: no pertinent surgical hx - Family History Positive for: non-pertinent - Social History Smoking Status: Never smoked Alcohol Use: None Drug Use: None Additional social history: Has lived in [facility] for 7 years, originally from [place] and moved to the [facility] in [place], has 2 daughters (1 is a foreign in [facility], the other is a PMR physician in [place]) Review of Systems Review of Systems: ROS: 10pt was reviewed & negative except for what was stated in HPI & below Physical Exam Physical Exam: Lab data and imaging were reviewed. Case discussed w/admitting physician, Dr. Wade Soto WBC; 8.95 RBC/H/H: 3.79/12/35 Na: 126 BUN/Cr: 24/0.8 CXR: No acute processes. EKG: Sinus tachycardia, borderline line left axis deviation Cervical Spine CT/Head CT: No acute fx or soft tissue swelling. No hemorrhage. Temp Pulse Resp BP Pulse Ox 38.0 C 101 H 18 179/105 H 93 07/02/18 18:58 07/02/18 18:58 07/02/18 18:58 07/02/18 18:58 07/02/18 18:58 Constitutional: appears nourished, not in pain, other (Mildly distressed pleasant cooperative pt. Denies pain. Reports she is overall feeling fine) Eyes: PERRL, anicteric sclera, EOMI Ears, Nose, Mouth, Throat: hearing normal, ears appear normal, no oral mucosal ulcers, dry mucous membranes Cardiovascular: regular rate and rhythym, no murmur, rub, or gallop, tachycardia Peripheral Pulses: 2+: dorsalis-pedis (R) (Radial 2+, non-pitting LE edema), dorsalis-pedis (L) (Radial 2+, non-pitting LE edema) Respiratory: no respiratory distress, no rales or rhonchi, clear to auscultation Gastrointestinal: normoactive bowel sounds, soft, non-tender abdomen, no palpable masses Genitourinary: no bladder fullness, no bladder tenderness Skin: abrasion, rash, other (RUE - appears to be a skin tear w/ moderate to severe hematoma surrounding area. Within wound, packing w/purulent discharge. Possible cellulitic changes surrounding wound, but not overtly apparent) Musculoskeletal: full muscle strength, no muscle tenderness, normal joint ROM, no joint effusions Neurologic: sensation intact bilaterally, CN II-XII Intact, other (A&Ox1) Psychiatric: interacting appropriately, not anxious, thought process linear Lymph, Heme, Immunologic: no cervical LAD, no supraclavicular LAD Lab Data & Imaging Review 07/02/18 17:30 07/02/18 17:30 WBC 8.95 10^3/uL (3.80-9.50) 07/02/18 17:30 RBC 3.79 10^6/uL (4.18-5.33) L 07/02/18 17:30 Hgb 12.0 g/dL (12.6-16.3) L 07/02/18 17:30 Hct 35.0 % (38.0-47.0) L 07/02/18 17:30 MCV 92.3 fL (81.5-99.8) 07/02/18 17:30 MCH 31.7 pg (27.9-34.1) 07/02/18 17:30 MCHC 34.3 g/dL (32.4-36.7) 07/02/18 17:30 RDW 13.8 % (11.5-15.2) 07/02/18 17:30 Plt Count 261 10^3/uL (150-400) 07/02/18 17:30 MPV 9.3 fL (8.7-11.7) 07/02/18 17:30 Neut % (Auto) 85.1 % (39.3-74.2) H 07/02/18 17:30 Lymph % (Auto) 7.6 % (15.0-45.0) L 07/02/18 17:30 [place] % (Auto) 6.3 % (4.5-13.0) 07/02/18 17:30 Eos % (Auto) 0.4 % (0.6-7.6) L 07/02/18 17:30 Baso % (Auto) 0.3 % (0.3-1.7) 07/02/18 17:30 Nucleat RBC Rel Count 0.0 % (0.0-0.2) 07/02/18 17:30 Absolute Neuts (auto) 7.61 10^3/uL (1.70-6.50) H 07/02/18 17:30 Absolute Lymphs (auto) 0.68 10^3/uL (1.00-3.00) L 07/02/18 17:30 Absolute Monos (auto) 0.56 10^3/uL (0.30-0.80) 07/02/18 17:30 Absolute Eos (auto) 0.04 10^3/uL (0.03-0.40) 07/02/18 17:30 Absolute Basos (auto) 0.03 10^3/uL (0.02-0.10) 07/02/18 17:30 Absolute Nucleated RBC 0.00 10^3/uL (0-0.01) 07/02/18 17:30 Immature Gran % 0.3 % (0.0-1.1) 07/02/18 17:30 Immature Gran # 0.03 10^3/uL (0.00-0.10) 07/02/18 17:30 Sodium 126 mEq/L (135-145) L 07/02/18 17:30 Potassium 4.2 mEq/L (3.5-5.2) 07/02/18 17:30 Chloride 92 mEq/L (97-110) L 07/02/18 17:30 Carbon Dioxide 24 mEq/l (22-31) 07/02/18 17:30 Anion Gap 10 mEq/L (6-14) 07/02/18 17:30 BUN 24 mg/dL (7-23) H 07/02/18 17:30 Creatinine 0.8 mg/dL (0.6-1.0) 07/02/18 17:30 Estimated GFR > 60 07/02/18 17:30 Glucose 111 mg/dL (70-100) H 07/02/18 17:30 Calcium 9.4 mg/dL (8.5-10.4) 07/02/18 17:30 Urine Color PALE YELLOW 07/02/18 18:20 Urine Appearance CLEAR 07/02/18 18:20 Urine pH 8.0 (5.0-7.5) H 07/02/18 18:20 Ur Specific [place] 1.008 (1.002-1.030) 07/02/18 18:20 Urine Protein NEGATIVE (NEGATIVE) 07/02/18 18:20 Urine Ketones NEGATIVE (NEGATIVE) 07/02/18 18:20 Urine Blood NEGATIVE (NEGATIVE) 07/02/18 18:20 Urine Nitrate NEGATIVE (NEGATIVE) 07/02/18 18:20 Urine Bilirubin NEGATIVE (NEGATIVE) 07/02/18 18:20 Urine Urobilinogen NEGATIVE EU (0.2-1.0) 07/02/18 18:20 Ur Leukocyte Esterase NEGATIVE (NEGATIVE) 07/02/18 18:20 Urine Glucose NEGATIVE (NEGATIVE) 07/02/18 18:20 Assessment & Plan Plan: 88 y/o female w/ hx of dementia, hypothyroidism, hyperlidemia, and anemia presenting via EMS after multiple falls today, fever, and open wound w/ cellulitic changes noted. #RUE wound: Large hematoma surround wound that is packed. Suspected cellulitis thus explanation of fever however it appears to be an atypical presentation w/ darkened rash, lack of pain to area, and full ROM -Blood cultures pending -Wound consult -Received Ancef in ED; will cont Ancef 1gm Q8 IV -If symptoms not improving, consider ID consult #Fever: suspected from RUE wound as noted above. -Tylenol PRN -IVF -Cont to monitor #Multiple falls: Recurrent issue. No syncope. Most likely r/t dehydration and fever. Previous evaluation w/o etiology. -Received 1L NS in ED; Cont IVF -PT/OT to evaluate and treat #Hyponatremic: Appears hypovolemic. -IVF and recheck in AM #Dementia: A&O x 1. #Hypothyroidism: cont levothyroxine #Dehydration: mild BUN/Cr bump 24/0.8 dry mucous membrane, tenting. Febrile. -IVF, recheck in AM Diet: Regular VTE ppx: SCDs Code: DNR Dispo: Admit to inpatient <Florencio Soto - Last Filed: 07/02/18 20:38> History and Physical - History of Present Illness Review of Systems Review of Systems: Physical Exam Physical Exam: Temp Pulse Resp BP Pulse Ox 37.1 C 93 17 170/92 H 92 07/02/18 20:33 07/02/18 20:33 07/02/18 20:33 07/02/18 20:33 07/02/18 20:33 Lab Data & Imaging Review 07/02/18 17:30 07/02/18 17:30 WBC 8.95 10^3/uL (3.80-9.50) 07/02/18 17:30 RBC 3.79 10^6/uL (4.18-5.33) L 07/02/18 17:30 Hgb 12.0 g/dL (12.6-16.3) L 07/02/18 17:30 Hct 35.0 % (38.0-47.0) L 07/02/18 17:30 MCV 92.3 fL (81.5-99.8) 07/02/18 17:30 MCH 31.7 pg (27.9-34.1) 07/02/18 17:30 MCHC 34.3 g/dL (32.4-36.7) 07/02/18 17:30 RDW 13.8 % (11.5-15.2) 07/02/18 17:30 Plt Count 261 10^3/uL (150-400) 07/02/18 17:30 MPV 9.3 fL (8.7-11.7) 07/02/18 17:30 Neut % (Auto) 85.1 % (39.3-74.2) H 07/02/18 17:30 Lymph % (Auto) 7.6 % (15.0-45.0) L 07/02/18 17:30 [place] % (Auto) 6.3 % (4.5-13.0) 07/02/18 17:30 Eos % (Auto) 0.4 % (0.6-7.6) L 07/02/18 17: Baso % (Auto) 0.3 % (0.3-1.7) 07/02/18 17:30 Nucleat RBC Rel Count 0.0 % (0.0-0.2) 07/02/18 17:30 Absolute Neuts (auto) 7.61 10^3/uL (1.70-6.50) H 07/02/18 17:30 Absolute Lymphs (auto) 0.68 10^3/uL (1.00-3.00) L 07/02/18 17:30 Absolute Monos (auto) 0.56 10^3/uL (0.30-0.80) 07/02/18 17:30 Absolute Eos (auto) 0.04 10^3/uL (0.03-0.40) 07/02/18 17:30 Absolute Basos (auto) 0.03 10^3/uL (0.02-0.10) 07/02/18 17:30 Absolute Nucleated RBC 0.00 10^3/uL (0-0.01) 07/02/18 17:30 Immature Gran % 0.3 % (0.0-1.1) 07/02/18 17:30 Immature Gran # 0.03 10^3/uL (0.00-0.10) 07/02/18 17:30 Sodium 126 mEq/L (135-145) L 07/02/18 17:30 Potassium 4.2 mEq/L (3.5-5.2) 07/02/18 17:30 Chloride 92 mEq/L (97-110) L 07/02/18 17:30 Carbon Dioxide 24 mEq/l (22-31) 07/02/18 17:30 Anion Gap 10 mEq/L (6-14) 07/02/18 17:30 BUN 24 mg/dL (7-23) H 07/02/18 17:30 Creatinine 0.8 mg/dL (0.6-1.0) 07/02/18 17:30 Estimated GFR > 60 07/02/18 17:30 Glucose 111 mg/dL (70-100) H 07/02/18 17:30 Calcium 9.4 mg/dL (8.5-10.4) 07/02/18 17:30 Urine Color PALE YELLOW 07/02/18 18:20 Urine Appearance CLEAR 07/02/18 18:20 Urine pH 8.0 (5.0-7.5) H 07/02/18 18:20 Ur Specific [place] 1.008 (1.002-1.030) 07/02/18 18:20 Urine Protein NEGATIVE (NEGATIVE) 07/02/18 18:20 Urine Ketones NEGATIVE (NEGATIVE) 07/02/18 18:20 Urine Blood NEGATIVE (NEGATIVE) 07/02/18 18:20 Urine Nitrate NEGATIVE (NEGATIVE) 07/02/18 18:20 Urine Bilirubin NEGATIVE (NEGATIVE) 07/02/18 18:20 Urine Urobilinogen NEGATIVE EU (0.2-1.0) 07/02/18 18:20 Ur Leukocyte Esterase NEGATIVE (NEGATIVE) 07/02/18 18:20 Urine Glucose NEGATIVE (NEGATIVE) 07/02/18 18:20 Nasal Influenza A PCR NEGATIVE FOR FLU A (NEGATIVE) 07/02/18 19:00 Nasal Influenza B PCR NEGATIVE FOR FLU B (NEGATIVE) 07/02/18 19:00 Assessment & Plan Assessment: Cellulitis (Acute) Dementia (Acute) Fever (Acute) Plan: I have reviewed the chart, personally examined, and discussed the patient with Maite Greenfield NP. I agree with her plan outlined above. Please see my separate note for additional details.
--- NOTE | 2018-07-02 20:17 | CPEKG ---
Test Reason : OPEN Blood Pressure : / mmHG Vent. Rate : 101 BPM Atrial Rate : 101 BPM P-R Int : 165 ms QRS Dur : 082 ms QT Int : 350 ms P-R-T Axes : 043 -29 035 degrees QTc Int : 454 ms Sinus tachycardia Probable left atrial enlargement Borderline left axis deviation Confirmed by Demarco Chen ([id number]) on 07/02/2018 8:17:28 PM Referred By: Demarco Chen Confirmed By:Demarco Chen
--- NOTE | 2018-07-02 20:43 | HOSPPROG ---
Hospitalist Progress Note Assessment/Plan: I have discussed case with Maite Greenfield CHILD NUTRITION DIRECTOR and agree with plan outlined in her note with the following exceptions: Briefly, 88yo F with dementia who is brought in from [facility] with recurrent falls. She also reportedly had a temperature to 100.4 prior to coming to the ED. She is unable to provide much history to me. She does not remember falling. She is tachycardic with a temperature of 38.1. She is normotensive. On exam she appears clinically dry. She has a large right arm ecchymoses with 2 inch vertical wound just below her elbow that has packing in it. There is some surrounding erythema. She is alert but flat affect and oriented x2 (person, place). Labs show a sodium of 126, chloride of 92, BUN of 24, and creatinine of 0.8. A chest x-ray is without pneumonia or heart failure. ECG is non-ischemic. A non-contrasted CT of her head and cervical spine are without acute abnormalities. She was given 1L of normal saline and IV ancef in the ED. Assessment/Plan: 1. Low grade fever: Suspect related to #2. Antiobiotics per below. Blood cultures drawn in ED. 2. RUE wound with surrounding cellulitis: Likely related to trauma from recent fall. Continue IV ancef. Wound care has been ordered. 3. Hypovolemic hyponatremia: She is quite dehydrated on exam. Will give normal saline at 100ml/hr and recheck in AM. 4. Acute metabolic encephalopathy: Due to infection, fever, low sodium. Management as above. She is at risk for delirium. 5. Falls: PT/OT have been ordered. 6. Anemia: Chronic and above previous values. 7. Dementia: Not at baseline. Of note, this is her 3rd admission in 2 months and 4th admission in 5 months for similar presentation as above. 8. Hypothyroid: Home LT4 replacement. VTE ppx: SCDs Diet: regular Dispo: DNR/DNI Dispo: Admit as inpatient, will likely require >2 MN given frailty and need for IV therapies Objective: Vital Signs Temp Pulse Resp BP Pulse Ox 37.1 C 93 17 170/92 H 92 07/02/18 20:33 07/02/18 20:33 07/02/18 20:33 07/02/18 20:33 07/02/18 20:33 07/01/18 07/02/18 07/03/18 05:59 05:59 05:59 Intake Total 1000 Balance 1000 ICD10 Worksheet Patient Problems: Problems Problem Status Onset Cellulitis Acute Dementia Acute Fever Acute Dehydration Acute Elevated CK Acute Failure to thrive in adult Acute Fall from ground level Acute Head injury Acute Hyponatremia Acute Multiple abrasions Acute Occipital scalp laceration Acute Unable to ambulate Acute
[2018-07-02] MEDS: NS 1,000 ML IV SCH (20:47)
[2018-07-03] MEDS: LEVOTHYROXINE 75 MCG TAB PO SCH (06:31)
[2018-07-03 07:22] LABS: PLATELET COUNT 189 10^3/uL (150-400)
[2018-07-03] MEDS ORDERED: PROTOCOL POTASSIUM 1 DOSE MISC PRN (08:02)
[2018-07-03] MEDS ORDERED: POTASSIUM CL 10 MEQ TAB PO ONE (08:07)
[2018-07-03] MEDS: NS 1,000 ML IV SCH (10:23)
--- NOTE | 2018-07-03 11:37 | HOSPPROG ---
Hospitalist Progress Note Assessment/Plan: Dianne is an 88y/o w dementia who was brought in from w recurrent falls, fevers. First encounter, chart reviewed. *gait instability w falls -PT and OT seeing *fever, tachycardia -resolved *cellulitis, RUE (has a right lateral elbow skin tear-appreciate wound care seeing her) -Cefazolin -will monitor, skin is warm and red around the skin tear *hyponatremia -hypovolemic *hypokalemia -will add oral protocol *dementia -significant-oriented only to herself *anemia -bit lower than baseline *hypothyroid -synthroid *dvt prophylaxis: [facility] *plan: dc fluids, add increase solute intake to help w low Na levels, recheck labs in a.m. Subjective: negar has no complaints. Objective: Vital Signs Temp Pulse Resp BP Pulse Ox 37.0 C 93 16 119/65 90 L 07/03/18 04:48 07/03/18 04:48 07/03/18 04:48 07/03/18 04:48 07/03/18 04:48 Laboratory Results 07/03/18 06:30 07/03/18 06:30 07/02/18 07/03/18 07/04/18 05:59 05:59 05:59 Intake Total 1100 Output Total 25 Balance 1100 -25 - Physical Exam Constitutional: chronically ill appearing Eyes: PERRL Ears, Nose, Mouth, Throat: hearing normal Cardiovascular: regular rate and rhythym Respiratory: no respiratory distress Skin: warm, other (large skin tear to right elbow area, has warmth and redness aroung the edges) Musculoskeletal: other (significant kyphosis) Neurologic: other (alert and oriented to herself) Psychiatric: poor memory ICD10 Worksheet Patient Problems: Problems Problem Status Onset Cellulitis Acute Dementia Acute Fever Acute Dehydration Acute Elevated CK Acute Failure to thrive in adult Acute Fall from ground level Acute Head injury Acute Hyponatremia Acute Multiple abrasions Acute Occipital scalp laceration Acute Unable to ambulate Acute
--- NOTE | 2018-07-03 12:15 | PDMN ---
Medical Necessity Medical necessity: Pt meets IP criteria per STATISTICAL CLERK ADVERTISING & MCG M-70 Cellulitis; est los > 2 mn for eval/tx of RUE wound that is packed w/surrounding cellulitis, tachycardia, acute metabolic encephalopathy, low grade fever, hypovolemic hyponatremia & falls; admit for further monitoring, IVFs, IV abx, Wound Care consult & therapies; comorbid advanced age, dementia; per H&P & order 07/02/18
--- NOTE | 2018-07-03 15:18 | WOCRNPDOC ---
WOCRN Advanced Assessment Note - Skin Integrity Problem, Advanced Assess Right Lateral Elbow Dressing Type: Sarah, Xeroform Dressing Description: Clean/Dry, Intact Integumentary Issue Intervention: Dressing Changed Rupa Wound Tissue: Ecchymotic, Swollen, Thin Rupa Wound Swelling: Mild Wound Bed Constitution: Red/[place] - Non Granular Tissue (50%), Adhered Slough (50 %) Wound Edges: Attached, Irregular Site Odor: None Site Measurement - Head-to-Toe Length X Width X Depth (cm): 6x2x0.2 Skin Integrity Problem Comment: Appears to be an older skin tear wound. Dressing and small piece of packing removed from wound. Wound bed cleaned with NS and gauze. Mid wound roughly 9 oclock there is a tiny opening that had very tiny amount (maybe 0.3 cm) of packing. Iodosorb applied to wound bed and covered with half sheet of Mepilex foam non border. Sarah wrapped over and secured with dated tape and strectchnette. Evelia LYN and Odilia CACERES in room for care. Wound care will follow.
--- NOTE | 2018-07-03 16:21 | ASMTCMCOM ---
CM Note CM Note Notes: Reviewed chart, pt admitted for falls. [place] lives [place], CM spoke with Albertina at who has a bed for her in their SNF. PT/OT recommend SNF, dc date uncertain, JUSTIN w/f. DC Plan: SNF/ [facility] Date Signed: 07/03/2018 04:21 PM Electronically Signed By:Irma Pandey RN
[2018-07-03] MEDS: ENOXAPARIN 30 MG/0.3 ML SYR SC SCH (19:35)
[2018-07-04] MEDS: LEVOTHYROXINE 75 MCG TAB PO SCH (05:50)
[2018-07-04 05:52] LABS: PLATELET COUNT 193 10^3/uL (150-400)
[2018-07-04] MEDS ORDERED: POTASSIUM CL 10 MEQ TAB PO ONE (07:17)
[2018-07-04] MEDS: ENOXAPARIN 30 MG/0.3 ML SYR SC SCH (08:03)
--- NOTE | 2018-07-04 13:11 | HOSPPROG ---
Hospitalist Progress Note Assessment/Plan: Dianne is an 88y/o w dementia who was brought in from w recurrent falls, fevers. *gait instability w falls -PT and OT seeing *fever, tachycardia -resolved *cellulitis, RUE (has a right lateral elbow skin tear-appreciate wound care seeing her) -Cefazolin -will monitor *hyponatremia -hypovolemic -stayed stable w stopping iv fluids *hypokalemia -will add oral protocol *dementia -significant-oriented only to herself *anemia -bit lower than baseline *hypothyroid -Synthroid -TSH is 1.9 *dvt prophylaxis: [facility] *plan: Rose is much improved today, will re-assess her wound tomorrow, suspect she can dc tomorrow if continues to improve. Subjective: Rose is happy, up in the chair, says "I'm eating" Objective: Vital Signs Temp Pulse Resp BP Pulse Ox 37.4 C 97 18 138/85 H 92 07/04/18 11:25 07/04/18 11:25 07/04/18 11:25 07/04/18 11:25 07/04/18 11:25 Laboratory Results 07/04/18 05:07 07/04/18 05:04 07/03/18 07/04/18 07/05/18 05:59 05:59 05:59 Intake Total 1100 175 50 Output Total 25 Balance 1100 150 50 - Physical Exam Constitutional: no apparent distress Eyes: PERRL Ears, Nose, Mouth, Throat: hard of hearing Respiratory: no respiratory distress Skin: other (right arm wrapped in dressing) Musculoskeletal: generalized weakness Psychiatric: interacting appropriately, poor memory ICD10 Worksheet Patient Problems: Problems Problem Status Onset Cellulitis Acute Dementia Acute Fever Acute Dehydration Acute Elevated CK Acute Failure to thrive in adult Acute Fall from ground level Acute Head injury Acute Hyponatremia Acute Multiple abrasions Acute Occipital scalp laceration Acute Unable to ambulate Acute
[2018-07-05 04:56] LABS: PLATELET COUNT 176 10^3/uL (150-400)
[2018-07-05] MEDS: LEVOTHYROXINE 75 MCG TAB PO SCH (05:35)
[2018-07-05] MEDS: ENOXAPARIN 30 MG/0.3 ML SYR SC SCH (08:30)
[2018-07-05] MEDS ORDERED: POTASSIUM CL 10 MEQ TAB PO ONE ×2 (08:40→08:45)
[2018-07-05] MEDS ORDERED: POTASSIUM CL 20 MEQ/15 ML UDCUP PO ONE (10:15)
--- NOTE | 2018-07-05 13:22 | HOSPPROG ---
Hospitalist Progress Note Assessment/Plan: Dianne is an 88y/o w dementia who was brought in from w recurrent falls, fevers. *gait instability w falls -PT and OT seeing *fever, tachycardia -resolved *cellulitis, RUE (has a right lateral elbow skin tear-appreciate wound care seeing her) -Cefazolin -much better *hyponatremia -hypovolemic -resolved *hypokalemia -will add oral protocol *dementia -close to her baseline, much more interactive *anemia -bit lower than baseline -spoke w her daughter and she has a hx of GI bleeds, had been on a PPI and this was stopped -daughter requested to resume PPI, will order this and have labs rechecked early next week when she is at the SNF *hypothyroid -Synthroid -TSH is 1.9 *dvt prophylaxis: [facility] *plan: dc to [facility] tomorrw Subjective: Rose is smiling, eating well. Objective: Vital Signs Temp Pulse Resp BP Pulse Ox 37.2 C 104 H 18 139/84 H 94 07/05/18 11:08 07/05/18 11:08 07/05/18 11:08 07/05/18 11:08 07/05/18 11:08 Laboratory Results 07/05/18 04:39 07/05/18 04:39 07/04/18 07/05/18 07/06/18 05:59 05:59 05:59 Intake Total 175 100 Output Total 25 Balance 150 100 - Physical Exam Constitutional: no apparent distress, other (slender) Eyes: PERRL Ears, Nose, Mouth, Throat: hard of hearing Respiratory: no respiratory distress Skin: warm, other (right elbow w large skin tear , slightly red around the edges of the tear, but the warmth and redness has significantly improved) Musculoskeletal: generalized weakness Psychiatric: interacting appropriately, not anxious, not encephalopathic ICD10 Worksheet Patient Problems: Problems Problem Status Onset Cellulitis Acute Dementia Acute Fever Acute Dehydration Acute Elevated CK Acute Failure to thrive in adult Acute Fall from ground level Acute Head injury Acute Hyponatremia Acute Multiple abrasions Acute Occipital scalp laceration Acute Unable to ambulate Acute
[2018-07-05] MEDS: PANTOPRAZOLE SODIUM 40 MG TAB PO SCH (15:15)
--- NOTE | 2018-07-05 15:17 | ASMTCMCOM ---
CM Note CM Note Notes: CM spoke with [employer], pt will dc to [facility] tomorrow, they have a bed for her in their SNF. JUSTIN to arrange transportation with [facility] [phone], I have confirmed he can pick pt up tomorrow by noon, CM to call him in the am. I spoke with dtr and she agrees with plan and using [facility]. CM to fax hard copies of orders to [phone] and RN to call [phone] for report. DC Plan: SNF/ [facility] Date Signed: 07/05/2018 03:16 PM Electronically Signed By:Irma Pandey RN
[2018-07-05] MEDS ORDERED: CHOLECALCIFEROL VIT D3 50,000 UNIT CAP PO SCH (20:00)
[2018-07-05] MEDS: CEPHALEXIN 500 MG CAP PO SCH (20:55)
[2018-07-06] MEDS: LEVOTHYROXINE 75 MCG TAB PO SCH (05:45)
[2018-07-06 08:05] VITALS: BP 144/86
[2018-07-06] MEDS: PANTOPRAZOLE SODIUM 40 MG TAB PO SCH (08:25)
[2018-07-06] MEDS: ENOXAPARIN 30 MG/0.3 ML SYR SC SCH (08:25)
[2018-07-06] MEDS: CEPHALEXIN 500 MG CAP PO SCH (08:25)
--- NOTE | 2018-07-06 08:29 | HOSPPROG ---
Hospitalist Progress Note Assessment/Plan: Dianne is an 88y/o w dementia who was brought in from w recurrent falls, fevers. *gait instability w falls -PT and OT seeing *fever, tachycardia -resolved *cellulitis, USHA (has a right lateral elbow skin tear-appreciate wound care seeing her) -was on Cefazolin - now on Keflex -much better *hyponatremia -hypovolemic -resolved *hypokalemia -will add oral protocol *dementia -close to her baseline, much more interactive *anemia -bit lower than baseline -spoke w her daughter and she has a hx of GI bleeds, had been on a PPI and this was stopped -daughter requested to resume PPI, will order this and have labs rechecked early next week when she is at the SNF *hypothyroid -Synthroid -TSH is 1.9 *dvt prophylaxis: [facility] *plan: dc to [facility] (cortisol level is 9.1) Subjective: negar has no complaints, wants to eat breakfast Objective: Vital Signs Temp Pulse Resp BP Pulse Ox 36.7 C 82 16 144/86 H 92 07/06/18 08:00 07/06/18 08:00 07/06/18 08:00 07/06/18 08:00 07/06/18 08:00 Laboratory Results 07/05/18 04:39 07/06/18 05:40 07/05/18 07/06/18 07/07/18 05:59 05:59 05:59 Intake Total 100 675 Balance 100 675 - Physical Exam Constitutional: no apparent distress, appears nourished, not in pain Eyes: PERRL Ears, Nose, Mouth, Throat: hard of hearing Respiratory: no respiratory distress, reduced air movement Skin: warm, other (right elbow not evaluated today, dressing in place ( cellulitis almost completely resolved yesterday) Musculoskeletal: generalized weakness, other (as significant kyphosis) Psychiatric: interacting appropriately, not anxious ICD10 Worksheet Patient Problems: Problems Problem Status Onset Cellulitis Acute Dementia Acute Fever Acute Dehydration Acute Elevated CK Acute Failure to thrive in adult Acute Fall from ground level Acute Head injury Acute Hyponatremia Acute Multiple abrasions Acute Occipital scalp laceration Acute Unable to ambulate Acute
--- NOTE | 2018-07-06 09:26 | PDIAF ---
- Diagnosis Diagnosis: r elbow skin tear, mild cellulitis. hyponatremia Code Status: Do Not Resuscitate - Medication Management Discharge Medications: electronically signed and located in the Home Medication List. PICC Care - Routine: N/A - Orders Services needed: Physical Therapy, Occupational Therapy Diet Recommendation: no restrictions on diet Diet Texture: Regular Texture Diet Additional Instructions: Please contact [facility] outpatient [facility] for an appointment, at [phone], to continue wound care treatments after your discharge or if you have any further questions or concerns. Or follow up with your PCP. Change dressing to Right Elbow MWF and prn. 1. Cleanse wound with normal saline and guaze. 2. Apply Iodosorb to wound bed only. 3. Cover with Mepilex foam non border. 4. Wrap with Sarah and netting Larry Peterson RN WC team Cortisol level was drawn in the hospital and was 9.1 Encourage patient to take in Ensure instead of Gatorade, likely to help her low sodium levels - Labs/Radiology BMP Date: 07/11/18 HCT/HGB Date: 07/11/18 - Follow Up Care Current Providers and Referrals: Dianne Du MD [Primary Care Provider] - As per Instructions
--- NOTE | 2018-07-06 10:11 | ASMTLACE ---
LACE Length of stay for Answers: 4-6 days current admission Acuity / Level of Answers: Yes Care: Did the patient have an inpatient admission? Comorbidities - select Answers: Dementia all that apply History of falls Other Notes: Hypothyroid; HLD # of Emergency department Answers: 3-4 visits in the last 6 months Score: 17 Date Signed: 07/06/2018 10:11 AM Electronically Signed By:MINGO Burgos
[2018-07-06] MEDS ORDERED: POTASSIUM CL 10 MEQ TAB PO ONE (10:16)
--- NOTE | 2018-07-06 10:25 | ASDISCHSUM ---
Discharge Information Plan Status:SNF Medically Cleared to Leave:07/06/2018 Discharge Date:07/06/2018 CM D/C Disposition:Residential Facility ADT D/C Disposition: Projected Discharge Date:07/06/2018 11:00 AM Transportation at D/C:Wheelchair Van Discharge Delay Reason: Follow-Up Date:07/06/2018 11:00 AM Discharge Slot: Final Diagnosis: Placement Information Referral Type:*Long Term/SNF Referral ID:[id number] Provider Name:[facility] Address 1:[address] Address 2: City:[place] Selection Factors: State:[place] Patient Contact Information Contact Name:ISELA Relationship:Daughter Address:[address] City:[place] Alternate Phone: State/Zip Code:[place] [address] Email: Financial Information Financial Class:Medicare Primary Plan Desc:MEDICARE INPATIENT Primary Plan Number:[id number] Secondary Plan Desc:BHAVIK DAVID PPO [employer] Secondary Plan Number:[id number] Assessment Information LACE LACE Length of stay for Answers: 4-6 days current admission Acuity / Level of Answers: Yes Care: Did the patient have an inpatient admission? Comorbidities - select Answers: Dementia all that apply History of falls Other Notes: Hypothyroid; HLD # of Emergency department Answers: 3-4 visits in the last 6 months Score: 17 Date Signed: 07/06/2018 10:11 AM Electronically Signed By:MINGO Burgos [facility] CM Progress Note CM Note CM Note Notes: Reviewed chart, pt admitted for falls. [place] lives [place], CM spoke with Albertina at who has a bed for her in their SNF. PT/OT recommend SNF, dc date uncertain, JUSTIN w/f. DC Plan: [facility]/ [facility] Date Signed: 07/03/2018 04:21 PM Electronically Signed By:Irma Pandey RN [facility] Progress Note CM Note CM Note Notes: JUSTIN spoke with INFECTION [employer]VENTION SPECIALIST, pt will dc to [facility] tomorrow, they have a bed for her in their SNF. JUSTIN to arrange transportation with [facility] [phone], I have confirmed he can pick pt up tomorrow by noon, JUSTIN to call him in the am. I spoke with dtr and she agrees with plan and using [facility]. JUSTIN to fax hard copies of orders to [phone] and RN to call [phone] for report. DC Plan: [facility]/ [facility] Date Signed: 07/05/2018 03:16 PM Electronically Signed By:Irma Pandey RN Intervention Information Intervention Type:IM-Pt. Not Available Date of Service:07/05/2018 10:55 AM Patient Type:Inpatient Staff Member:Germania Knight Hours: Discipline: Severity: Comment:Patient has dementia. A voicemail was left for MDPOA/daughter, Alma, regarding Medicare Important Notice form.
--- NOTE | 2018-07-06 10:44 | GDS ---
[f rep st] DISCHARGE SUMMARY DISCHARGE DIAGNOSIS: 1. Large right elbow skin tear with associated cellulitis. 2. Gait instability with falls. 3. Fever with tachycardia. 4. Hyponatremia. 5. Hypokalemia. 6. Dementia. 7. Anemia. 8. Hypothyroidism. HISTORY AND HOSPITAL COURSE: Briefly, this patient is an 88-year-old woman who has dementia who was brought in from [facility] with recurrent falls and fevers. It was noted that her sodium level was low. There was concern about a skin infection on her right elbow. She was treated with IV antibiotics and rehydrated with fluids. She is markedly better. She will be discharged to [facility] area. HOSPITAL COURSE PER PROBLEM: 1. Cellulitis, right upper extremity. Also has a large lateral elbow skin tear. She will be on Keflex for 5 more doses. It is markedly improved. She will also get wound care. 2. Gait instability with fall. She is doing quite well with PT and OT. 3. Fever and tachycardia, resolved. 4. Hyponatremia. This was due to hypovolemia. This has resolved. 5. Hypokalemia, was given oral protocol. 6. Dementia, close to her baseline. 7. Anemia. She is a bit lower than her baseline. Her daughter states she has a history of a GI bleed. Will continue her on a PPI. She has no overt signs of bleeding. Will have her labs rechecked in a week at the shelter facility. 8. Hypothyroidism. Her TSH is 1.9. DISCHARGE CONDITION: Stable. Blood pressure is 144/86, heart rate of 82, respiratory rate 16, O2 sats on room air 92%, temperature 36.7 Celsius. MEDICATIONS AT DISCHARGE: Please see the EMR. DISCHARGE INSTRUCTIONS: 1. Wound care dressings have been written out in detail for her care. 2. If she develops fever, chills, chest pain, shortness of breath, return to the ER. 3. Recommending that her solute intake be increased. Suspect this is why she has such low sodium levels. Greater than 30 minutes discharging and coordinating the patient's care. /[id number]/MODL MTDD
--- NOTE | 2018-07-06 14:25 | ASMTDCNOTE ---
Case Management Discharge Discharge Order Complete? Answers: Yes Patient to Obtain Answers: Other Notes: [facility] Medications Transportation Arranged Answers: Other Notes: [facility] will Pick (Date 07/06/2018 12:00 PM & Time) Faxed Final Orders Answers: Yes Agency/Facility Transfer Answers: Yes Report Printed & Faxed to Receiving Agency Discharge Comments Notes: [facility] transporting via w/c van. D/C meds, orders, facility transfer sent hard fax to [phone] and via [employer]. IM letter signed, copy to pt and in chart. Date Signed: 07/06/2018 02:25 PM Electronically Signed By:MINGO Burgos
== END 2018-07-06 13:00 | DRG 603 ==
LOC: EDUNIT# → F3E 20:26
PROVIDERS: ADMIT Internal Medicine; ATTEND Internal Medicine
DX: L03.113 Cellulitis of right upper limb (principal); E87.1 Hypo-osmolality and hyponatremia; R26.9 Unspecified abnormalities of gait and mobility; R29.6 Repeated falls; E87.6 Hypokalemia; F03.90 Unspecified dementia, unspecified severity, without behavioral disturbance, psychotic disturbance, mood disturbance, and anxiety; D64.9 Anemia, unspecified; E03.9 Hypothyroidism, unspecified; E86.0 Dehydration
CPT/HCPCS: 96365; 97116-GP; 97162-GP; 97165-GO; 97530-GP; 97535-GO; J0690; J1650